=== PATIENT | female | born 1990 | race Caucasian/White ===

== ENCOUNTER 2017-04-13 10:04 | Emergency (ER) | payer BC, MEDICAID ==
[2017-04-13 10:16] VITALS: BP 117/70
--- NOTE | 2017-04-13 10:56 | UC ---
Throat Pain/Nasal Rizwan HPI - HPI Summary HPI Summary: LAST NIGHT DEVELOPED SORE THROAT, PATIENT IS 20 WKS PREGNENT. CONCERN FOR STREP. NO FEVER. NO RASH. NO ABDOMINAL PAIN - History of Current Complaint Chief Complaint: UCRespiratory Stated Complaint: SORE THROAT Time Seen by Provider: 04/13/17 10:26 Hx Obtained From: Patient Hx Last Menstrual Period: currently Onset/Duration: Gradual Onset, Lasting Days, Still Present Severity: Mild Cough: None Associated Signs & Symptoms: Positive: Hoarseness - Epiglottits Risk Factors Epiglottis Risk Factors: Negative - Allergies/Home Medications Allergies/Adverse Reactions: Allergies Allergy/AdvReac Type Severity Reaction Status Date / Time Amoxicillin Allergy GI Upset Verified 04/13/17 10:16 Home Medications: Home Medications Hydroxyprogesterone Caproate [[place]] 250 mg IM 04/13/17 [History] PMH/Surg Hx/FS Hx/Imm Hx Previously Healthy: Yes - Surgical History Surgical History: None - Family History Known Family History: Negative: Blood Disorder - Social History Occupation: Employed Full-time Lives: With Family Alcohol Use: None Substance Use Type: None Smoking Status (MU): Never Smoked Tobacco Type: Smokeless Tobacco Amount Used/How Often: 1 can/day Have You Smoked in the Last Year: No - Immunization History Most Recent Influenza Vaccination: fall 2014 Most Recent Tetanus Shot: 07/25/15 Most Recent Pneumonia Vaccination: none Review of Systems Constitutional: Negative Skin: Negative Eyes: Negative ENT: Sore Throat Respiratory: Negative Cardiovascular: Negative Gastrointestinal: Negative Genitourinary: Negative Motor: Negative Neurovascular: Negative Musculoskeletal: Negative Neurological: Negative Psychological: Negative Is Patient Immunocompromised?: No All Other Systems Reviewed And Are Negative: Yes Physical Exam Triage Information Reviewed: Yes Appearance: Well-Appearing, No Pain Distress, Well-Nourished Vital Signs: Initial Vital Signs Temp 98.0 F 04/13/17 10:11 Pulse 97 04/13/17 10:11 Resp 18 04/13/17 10:11 BP 117/70 04/13/17 10:11 Pulse Ox 99 04/13/17 10:11 Vital Signs Reviewed: Yes Eye Exam: Normal ENT: Positive: Pharyngeal erythema Dental Exam: Normal Neck exam: Normal Neck: Positive: Supple, Nontender, No Lymphadenopathy Respiratory Exam: Normal Respiratory: Positive: Chest non-tender, Lungs clear, Normal breath sounds, No respiratory distress, No accessory muscle use Cardiovascular Exam: Normal Cardiovascular: Positive: RRR, No Murmur, Pulses Normal, Brisk Capillary Refill Abdominal Exam: Normal Abdomen Description: Positive: Nontender, No Organomegaly, Soft Musculoskeletal Exam: Normal Musculoskeletal: Positive: Strength Intact, ROM Intact Neurological Exam: Normal Psychological Exam: Normal Skin Exam: Normal Throat Pain/Nasal Course/Dx - Differential Dx/Diagnosis Differential Diagnosis/HQI/PQRI: Pharyngitis, Sinusitis, Tonsillitis Provider Diagnoses: PHARYNGITIS; 20 WEEKS Discharge - Discharge Plan Condition: Stable Disposition: HOME Patient Education Materials: Pharyngitis (ED) Referrals: Cara Marshall MD [Primary Care Provider] -
== END 2017-04-13 10:55 | disposition home or self-care (01) ==
LOC: UCEAST 10:04
DX: O26.892 Other specified pregnancy related conditions, second trimester (principal); Z88.1 Allergy status to other antibiotic agents; J02.9 Acute pharyngitis, unspecified; Z3A.20 20 weeks gestation of pregnancy
CPT/HCPCS: 87651; 99211; G0463

== ENCOUNTER 2017-07-08 09:46 | Inpatient (IN) | payer BC, MEDICAID ==
[2017-07-08] MEDS ORDERED: Ibuprofen TAB* 600 MG ONE (10:27)
[2017-07-08] MEDS ORDERED: Acetaminophen TAB* 325 MG PO PRN (10:32)
[2017-07-08] MEDS ORDERED: Dibucaine 1% 28.35 GM TUBE PR PRN (10:32)
[2017-07-08] MEDS ORDERED: Witch Hazel PAD* JAR TOPICAL PRN (10:32)
[2017-07-08] MEDS ORDERED: Glycerin ADULT SUPP PR PRN (10:32)
[2017-07-08] MEDS ORDERED: Simethicone TAB* 80 MG TAB.CHEW PO SCH (12:30)
[2017-07-08] MEDS: Ibuprofen TAB* 600 MG PO PRN ×2 (16:22→21:43)
[2017-07-08] MEDS: Docusate CAP* 100 MG PO SCH (21:44)
[2017-07-09] MEDS: Ibuprofen TAB* 600 MG PO PRN ×3 (04:02→21:33)
[2017-07-09 07:25] LABS: Hematocrit 39 % (35-47); Hemoglobin 13.5 g/dl (12.0-16.0); Mean Corpuscular HGB Conc 34 g/dl (31-36); Mean Corpuscular Hemoglobin 30 pg (27-31); Mean Corpuscular Volume 88 fL (80-97); Mean Platelet Volume 8 um3 (7.4-10.4); Red Blood Count 4.49 10^6/ul (4.0-5.4); Red Cell Distribution Width 14 % (10.5-15)
[2017-07-09 07:26] LABS: Add Diff/Slide Review? Slide Review Added; Comments Flag Yes
[2017-07-09] MEDS: Docusate CAP* 100 MG PO SCH ×4 (08:42→21:32)
[2017-07-09] MEDS ORDERED: Ferrous Gluconate TAB* 324 MG TAB PO SCH (09:00)
[2017-07-09] MEDS ORDERED: Measles, Mumps,Rubella VACC* 0.5 ML/VIAL SUBCUT ONE (09:00)
[2017-07-10] MEDS: Ibuprofen TAB* 600 MG PO PRN ×2 (07:11→18:07)
[2017-07-10] MEDS: Docusate CAP* 100 MG PO SCH ×2 (09:49→18:06)
[2017-07-10 12:37] VITALS: BP 131/81
== END 2017-07-10 18:50 | disposition home or self-care (01) | DRG 560 ==
LOC: MCHOBOUT 09:46 → MCHOB 09:54
PROVIDERS: ADMIT Obstetrics & Gynecology; ATTEND Obstetrics & Gynecology
PROC: 10E0XZZ Delivery of Products of Conception, External Approach (ICD-10-PCS; principal; 2017-07-08)
PROC: 10907ZC Drainage of Amniotic Fluid, Therapeutic from Products of Conception, Via Natural or Artificial Opening (ICD-10-PCS; 2017-07-08)
DX: O60.14X0 Preterm labor third trimester with preterm delivery third trimester, not applicable or unspecified (principal); O69.3XX0 Labor and delivery complicated by short cord, not applicable or unspecified; O70.0 First degree perineal laceration during delivery; Z3A.32 32 weeks gestation of pregnancy; Z37.0 Single live birth
CPT/HCPCS: 36415; 85025; 87070; A9270-GY

== ENCOUNTER 2018-10-11 12:32 | Emergency (ER) | payer BC, MEDICAID ==
--- OUTSIDE RECORDS SUMMARY | 2018-10-11 12:39 | XMS REPORT | Continuity of Care Document ---
:1990 External Reference #:[id number] Author Name Cristina Robles MD Address [address] [place] [address] Care Team Providers Name Role Phone Cara Marshall MD Primary Care Physician Unavailable Payers Date Identification Numbers Payment Provider Subscriber Policy Number: [id number] [employer]/[facility] PayID: [id number] [address] [address] [place] [address] Policy Number: [id number] Medicaid [place] Trisha Ward PayID: [id number] [address] [place] [address] Advance Directives Description No Information Available Problems Date Description Provider Status Onset: 06/18/2017 H/O: premature delivery Jerrica Garnett CNM Active Family History Date Family Member(s) Observation Comments : (2000) Father due to Suicide : (2007) Mother due to Stomach Cancer Number of Children 2 First Son A&W Second Son A&W Number of Siblings Siblings: 3 First Brother A&W First Sister Drug Addiction Second Sister A&W Paternal Grandfather due to Unknown Causes () Paternal Grandmother Heart Disease Maternal Grandfather Diabetes Maternal Grandmother Heart Disease Maternal Grandmother due to Congestive Heart () Failure Maternal Grandmother Hypertension Social History Type Date Description Comments Sex Unknown Education Highest level of education completed is 12th grade Marital Status Patient is engaged Living Situation 2 daughters(adopted, sisters children) and sons Diet Diet is healthy and well balanced Pets Household pets include a dog 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 [employer] Environmental Hazards Not exposed to any environmental hazards Cigarette Use Never smoked cigarettes Alcohol Denies alcohol use Tobacco Use Start: Unknown Patient has never smoked Drug Use Denies drug use Smoking Status Reviewed: 10/01/18 Patient has never smoked Daily Caffeine occ soda Exercise Type/Frequency Exercises regularly Current Seat Belt/Car Seat Always uses a seat belt Currently Active The patient is currently sexually active Contraceptive Methods Current methods of control used include condoms Allergies, Adverse Reactions, Alerts Description No Known Drug Allergies Medications Medication Date Status Form Strength Qnty SIG Indications Ordering Provider Tiffanie (52 10/01/ Active IUD 19.5mcg/D Placed Baclawski MG) 2018 ay 10/01/2018 , MD Cristina No Active 10/01/ Hx Unknown Medications 2018 - 2018 Marlissa 09/25/ Hx Tablets 0.15-30mg 84tab take 1 tablet Erianna 2017 - -mcg s by mouth once Juarez, 09/27/ daily CN 2018 No Active 09/04/ Hx Unknown Medications 2017 - 2017 Dha 12/27/ Hx Capsules 200mg 90cap 1 by mouth Flakita 2017 - s every day, ok Sheryl, 09/04/ to use LM 2017 200-400mg dha, ok to use any generic No Active 12/24/ Hx Unknown Medications 2016 - 2016 No Active 07/02/ Hx Unknown Medications 2015 - 2015 Levora 0.15/30 07/02/ Hx Tablets 0.15-30mg 84tab take 1 tab by Apurva () 2015 - -mcg s mouth every MD Pat day 2016 Orsythia 10/23/ Hx Tablets 0.1-20mg- 84tab take one tab Apurva 2015 - mcg s PO daily MD Pat 2015 Azithromycin 04/19/ Hx Tablets 500mg 2tabs take 2 tabs Jerrica 2014 - for a total of Garnett, 04/26/ 1000mg (1g) by CNTayla 2014 mouth x1 PNV-Dha 04/17/ Hx Capsules 27-0.6-0. 30cap 1 by mouth Maureen 2014 - 4-300mg s every day Óscar, 06/27/ CNM 2015 Provera 03/20/ Hx Tablets 10mg 10tab 1 po qd x 10 Zahra 2009 - s Elmer, 03/25/ ANP-C 2009 Lo/Ovral-28 03/20/ Hx Tablets 0.3-30mg- 3mont 1 po qd Zahra 2009 - mcg hs Jump, 04/17/ ANP-C 2014 [place] / Hx Oil 250mg/ml 1 milliliters Unknown 0000 - intramuscular 09/04/ week 2017 Medications Administered in Office Medication Date Status Form Strength Qnty SIG Indications Ordering Provider PT SCRN Tbco Administered Injection Margaret, Id as Non User 019 MD Cristina Immunizations CPT Code Status Date Vaccine Lot # [id number] Given 05/09/2017 Influenza Vaccine Quadrivalent Preser/Antibiotic [id number] Free [place] Use [id number] Given 07/25/2015 Tetnus, Diptheria Toxoids And Acellular Pertussis, [id number] PT > 7Yrs Old Vital Signs Date Vital Result Comment 10/01/2018 2:53pm BP Systolic 124 mmHg BP Diastolic 62 mmHg Height 58 inches 4'10" Weight 172.00 lb BMI (Body Mass Index) 35.9 kg/m2 Last Menstrual Period [id number] 2 Parity 2 09/16/2018 11:38am BP Systolic 124 mmHg BP Diastolic 74 mmHg Height 58 inches 4'10" Weight 175.00 lb BMI (Body Mass Index) 36.6 kg/m2 Last Menstrual Period [id number] 2 Parity 2 09/04/2017 8:35am BP Systolic 116 mmHg BP Diastolic 84 mmHg Height 58 inches 4'10" Weight 183.00 lb BMI (Body Mass Index) 38.2 kg/m2 Last Menstrual Period 5988956 2 Parity 2 01/13/2017 1:25pm BP Systolic 114 mmHg BP Diastolic 72 mmHg Height 58 inches 4'10" Weight 175.00 lb BMI (Body Mass Index) 36.6 kg/m2 Last Menstrual Period [id number] 2 Parity 1 12/24/2016 2:28pm BP Systolic 122 mmHg BP Diastolic 72 mmHg Height 58 inches 4'10" Weight 175.00 lb BMI (Body Mass Index) 36.6 kg/m2 Last Menstrual Period 1011828 2 Parity 1 07/02/2016 2:30pm BP Systolic 130 mmHg BP Diastolic 84 mmHg Height 58 inches 4'10" Weight 181.00 lb BMI (Body Mass Index) 37.8 kg/m2 1 Parity 1 10/24/2015 1:43pm BP Systolic 140 mmHg BP Diastolic 88 mmHg Height 58 inches 4'10" Weight 176.00 lb BMI (Body Mass Index) 36.8 kg/m2 1 Parity 1 04/17/2015 2:06pm BP Systolic 118 mmHg BP Diastolic 64 mmHg Height 58 inches 4'10" Weight 159.00 lb BMI (Body Mass Index) 33.2 kg/m2 1 Parity 0 04/29/2014 1:48pm BP Systolic 124 mmHg BP Diastolic 84 mmHg Height 58 inches 4'10" Weight 155.00 lb BMI (Body Mass Index) 32.4 kg/m2 Last Menstrual Period [id number] 0 Parity 0 04/06/2014 2:25pm BP Systolic 132 mmHg BP Diastolic 78 mmHg Height 58 inches 4'10" Weight 162.00 lb BMI (Body Mass Index) 33.9 kg/m2 Last Menstrual Period [id number] 0 12/16/2013 2:16pm BP Systolic 132 mmHg BP Diastolic 78 mmHg Height 58 inches 4'10" Weight 161.00 lb BMI (Body Mass Index) 33.6 kg/m2 Last Menstrual Period 2136020 0 Parity 0 03/20/2010 3:22pm BP Systolic 120 mmHg BP Diastolic 76 mmHg Height 58.75 inches 4'10.75" Weight 172.00 lb BMI (Body Mass Index) 35.0 kg/m2 Last Menstrual Period [id number] 0 02/27/2010 10:03am BP Systolic 120 mmHg BP Diastolic 76 mmHg Height 58.75 inches 4'10.75" Weight 173.00 lb BMI (Body Mass Index) 35.2 kg/m2 Last Menstrual Period [id number] 0 Results Test Date Facility Test Result H/L Range Note Laboratory test 09/16/2018 [facility] Cytology SEE RESULT 1 [place] [address] BELOW [phone] Laboratory test 06/11/2017 [facility] Glucose 1 HR 123 mg/dL N 70-160 2 [place] [address] Post Prandial [phone] CBC With No Diff 06/11/2017 [facility] White Blood 11.8 10^3/uL High 3.5-10.8 [place] [address] Count [phone] Red Blood Count 3.99 10^6/uL Low 4.0-5.4 Hemoglobin 12.5 g/dL N 12.0-16.0 Hematocrit 38 % N 35-47 Mean Corpuscular Volume 95 fL N 80-97 Mean Corpuscular Hemoglobin 31 pg N 27-31 Mean Corpuscular HGB Conc 33 g/dL N 31-36 Red Cell Distribution Width 15 % N 10.5-15 Platelet Count 242 10^3/uL N 150-450 Mean Platelet Volume 8 um3 N 7.4-10.4 GC/Chlamydia Dna 04/30/2017 [facility] Chlamydia [place] [address] trachomatis Rna [phone] Neisseria gonorrhoeae (GC) Rna Negative N Negative Serum Integrated Screen Part 2 MT 03/14/2017 [facility] Interpretation SEE BELOW 3 Risk For Ontd <1:5000 Age Risk Down Syndrome 1:820 KRISTYN Down Syndrome Risk 1:1000 <1:270 KRISTYN Trisomy 18 Risk <1:5000 <1:100 Calculated Gestational Age 16.0 Afp,Serum 20.2 ng/mL Afp Mom 0.69 4 HCG,Serum 45.7 IU/mL HCG Mom 1.46 Estriol,Free 0.59 ng/mL Estriol Mom 0.81 Inhibin A,Dimeric 188 pg/mL Inhibin A Mom 1.19 Anila-A 468.2 ng/mL 5 Anila-A Mom 0.93 6 Referring Physician Name STEVENS Referring Physician Phone [phone] Referring Physician Npi [id number] Specimen # From Part 1 [id number] Date Of Collection Date Maternal Weight 175 lbs Est'd Date Of Delivery 08/29/2017 Mother's Ethnic Origin Insulin Depend Diabetic NO Repeat Specimen NO Number Of Fetuses 1 HX Of Neural Tube Defects NO 7 PNL No 02/10/2017 [facility] Rubella Equivocal IU/mL N Immune 8 [place] [address] Screen [phone] Hemoglobin A1c 4.8 % N Less than 6.0 9 Hepatitis B Surface Ag Nonreactive N Nonreactive 10 Syphillis Igg W/Reflex RPR Nonreactive N Nonreactive 11 CBC With No 02/10/2017 [facility] White Blood 11.8 10^3/uL High 3.5-10.8 [place] [address] Count [phone] Red Blood Count 4.80 10^6/uL N 4.0-5.4 Hemoglobin 14.5 g/dL N 12.0-16.0 Hematocrit 44 % N 35-47 Mean Corpuscular Volume 92 fL N 80-97 Mean Corpuscular Hemoglobin 30 pg N 27-31 Mean Corpuscular HGB Conc 33 g/dL N 31-36 Red Cell Distribution Width 14 % N 10.5-15 Platelet Count 253 10^3/uL N 150-450 Mean Platelet Volume 9 um3 N 7.4-10.4 Type And Screen 02/10/2017 [facility] Patient [place] [address] [phone] Antibody Screen NEGATIVE N HIV 1/2 AB 02/10/2017 [facility] HIV 1 2 Nonreactive N Nonreactive 12 [place] [address] Antibody [phone] Lead 02/10/2017 [facility] Lead <1.0 g/dL N 0.0-4.9 13 [place] [address] [phone] Serum 02/10/2017 [facility] Comment SEE BELOW 14 Integrated SCRN Part 1 MT Referring Physician Name WILSON 15 Referring Physician 16 Referring Physician Npi [id number] 17 Date Of 1990 18 Collection Date 02/10/2017 19 Maternal Weight 175 lbs 20 Est'd Date Of Delivery 08/29/2017 21 GRACE Determined By US 22 Mother's Ethnic Origin 23 Number Of Fetuses 1 24 Insulin Depend Diabetic NO 25 Repeat Specimen NO 26 HX Of Neural Tube Defects NO 27 Prev Down Synd NO 28 Donor Egg NO 29 Donor Age:Egg Retrieval NOT GIVEN 30 Urine Culture And 01/13/2017 [facility] Urine Culture SEE RESULT 31 [place] [address] BELOW [phone] Laboratory test 12/24/2016 [facility] HCG 3985.00 N 32 [place] [address] mIU/mL [phone] Laboratory test 12/22/2016 [facility] HCG 1734.00 N 33 [place] [address] mIU/mL [phone] Laboratory test 12/20/2016 [facility] HCG 583.59 N 34 [place] [address] mIU/mL [phone] Laboratory test 07/02/2016 [facility] Cytology SEE RESULT 35 [place] [address] BELOW [phone] Human Papilloma Virus Rna Negative N Negative 36 Laboratory test 09/07/2015 [facility] Surgical SEE RESULT 37 [place] [address] Pathology BELOW [phone] Laboratory test 09/06/2015 [facility] Rupture of Positive N 38 [place] [address] Membranes [phone] Laboratory test 07/25/2015 [facility] Glucose 1 HR 125 mg/dL N 70-16 [place] [address] Post Prandial 0 [phone] CBC With No 07/25/2015 [facility] White Blood 11.7 10^3/uL High 3.5-1 [place] [address] Count 0.8 [phone] Red Blood Count 4.29 10^6/uL N 4.0-5.4 Hemoglobin 13.9 g/dL N 12.0-16.0 Hematocrit 41 % N 35-47 Mean Corpuscular Volume 95 fL N 80-97 Mean Corpuscular Hemoglobin 32 pg High 27-31 Mean Corpuscular HGB Conc 34 g/dL N 31-36 Red Cell Distribution Width 13 % N 10.5-15 Platelet Count 231 10^3/uL N 150-450 Mean Platelet Volume 7 um3 Low 7.4-10.4 GC/Chlamydia Dna 05/29/2015 [facility] Chlamydia [place] [address] trachomatis Rna [phone] Neisseria gonorrhoeae (GC) Rna Negative N Negative 39 Quad Screen 05/15/2015 [facility] Interpretation SEE NOTE 40 Risk For NTD (Osb) LESS THAN 1:5000 41 Risk For Down Based On Age 1:936 Risk For Down Based On SCR LESS THAN 1:5000 <1:270 42 Trisomy 18 Risk Based On SCR LESS THAN 1:5000 <1:100 43 Afp,Serum 45.6 NG/ML Adjusted Mom 1.05 44 HCG,Serum 31.355 IU/mL Mom 1.40 Estriol,Free 1.06 NG/ML Mom 0.74 Inhibin A 98 pg/mL Mom 0.60 Comment SEE NOTE 45 Date Of 1990 GRACE 10/13/2015 GRACE Determined By ULTRASOUND Gestational Age 18.4 WEEKS Weight 159 LBS Race =W Insulin Dependent Diabetic NO Repeat Sample NO Number Of Fetuses 1 History Of NTD NO Date Of Draw 05/15/2015 [facility] SEE NOTE 46 Urine Culture 04/17/2015 [facility] Urine SEE RESULT 47 [place] [address] Culture BELOW Sensitivities [phone] HIV 1/2 AB 04/17/2015 [facility] HIV 1 2 Nonreactive N Nonreactive 48 [place] [address] Antibody [phone] Type And Screen 04/17/2015 [facility] [place] [address] Blood Type [phone] Antibody Screen NEGATIVE N CBC With No 04/17/2015 [facility] White Blood 13.4 10^3/uL High 4.8-10[place]8 [place] [address] Count [phone] Red Blood Count 4.55 10^6/uL N 4.0-5.4 Hemoglobin 14.5 g/dL N 12.0-16.0 Hematocrit 45 % N 35-47 Mean Corpuscular Volume 99 fL High 80-97 Mean Corpuscular Hemoglobin 32 pg High 27-31 Mean Corpuscular HGB Conc 32 g/dL N 31-36 Red Cell Distribution Width 14 % N 10.5-15 Platelet Count 286 10^3/uL N 150-450 Mean Platelet Volume 9 um3 N 7.4-10.4 RPR 04/17/2015 [facility] Pediatric/[place] [address] [phone] RPR Nonreactive N Nonreactive RPR Titer TNP N Syphilis IgG TNP N Nonreactive PNL No 04/17/2015 [facility] Rubella Screen Immune IU/ [place] [address] [phone] Hemoglobin A1c 4.6 % N Less than 6.0 49 Hepatitis B Surface Ag Nonreactive N Nonreactive 50 [employer] Cystic Fibrosis Expanded SCRN 04/17/2015 [facility] Ethnicity WHITE CF Result SEE BELOW 51 Interpretation SEE BELOW 52 Additional Information SEE BELOW 53 Mutations Analyzed SEE BELOW 54 Parvovirus B19 AB 04/17/2015 [facility] Parvovirus B19 AB (Igm) 0.1 index < 0.9 55 (Igg,M) Parvovirus B19 AB (Igg) 2.1 index High <0.9 Laboratory 04/17/2015 [facility] Human Negative N Negative 56 test finding [place] [address] Papilloma [phone] Virus Rna GC/Chlamydia 04/17/2015 [facility] Chlamydia Positive Abnormal Negative Dna Probe [place] Jan[place] trachomatis [phone] Rna Neisseria gonorrhoeae (GC) Rna Negative N Negative 57 Laboratory test 04/17/2015 [facility] Cytology SEE RESULT 58 finding [place] [address] BELOW [phone] Laboratory test 04/06/2014 [facility] Surgical RUN DATE: [address] [place] [address] Pathology 04/11/ <SEE [phone] NOTE> Laboratory test 12/16/2013 [facility] Surgical RUN DATE: 60 finding [place] Pathology 12/22/ <SEE [phone] NOTE> 1 SEE RESULT BELOW Name: LAVELL ESCOBAR : [address]: Cristina Robles MD Acct: [id number] Unit: [id number] AGE: 28 Location: [facility] Re09/16/18 SEX: F Status: REG REF SPEC: [id number] EUFEMIA: 09/16/18-[address] [facility] [address]: Cristina Robles MD REQ: [id number] RECD: 09/16/18-6306 STATUS: MARIA GUADALUPE STEWART DR: Cara Marshall MD _ ORDERED: TP IMAGE ANALYS, POLE FRAMER MACHINE PHYS INTERP, HPV/Thin Prep COMMENTS: [id number] EPITHELIAL CELL ABNORMALITIES Low grade squamous intraepithelial lesion (LSIL) Date Time Test Result Flag (u) Normal Range 09/16/18 1308 @ HPV RNA POSITIVE An Negative @ @ The high-risk HPV types detected by the assay include: 16, @ 18, 31, 33, 35, 39, 45, 51, 52, 56, 58, 59, 66, and 68. A. Ectocervical/Endocervical Specimen Adequacy: Satisfactory of evaluation Transformation zone component identified Patient Information: HPV: High risk HPV RNA testing regardless of pap results. Actual Specimen Date: 09/16/18 Last Menstrual Date: 08/24/18 Date of Last Specimen: 07/02/16 Signed by and Reported on: Trenton Ramírez MD 9408 This Pap test was evaluated with the assistance of the ThinPrep Test Imaging System. Due to cytologic findings at the detective supervisor microscope, comprehensive manual rescreening by a Flight Director may be required. The Pap Smear is a screening test designed to aid in the detection of premalignant and malignant conditions of the uterine cervix. It is not a diagnostic procedure and should not be used as the sole means of detecting cervical cancer. Both false- positive and false- negative reports do occur. Depending on your risk status, a Pap smear should be obtained and evaluated every 1-3 years. END OF REPORT DEPARTMENT OF PATHOLOGY, [address] [place] [address] Trenton Ramírez M.D. Director [facility] # [id number] 2 [id number] 3 SCREEN NEGATIVE FOR OPEN NTD, DOWN SYNDROME AND TRISOMY 18. 4 Reference Range: <2.50 IDD <1.90 TWINS <4.00 TWINS IDD <3.50 TRIPLETS <4.50 5 This test was performed using a kit that has not been cleared or approved by the FDA. The analytical performance characteristics of this test have been determined by [employer] [facility]. This test should not be used for diagnosis without confirmation by other medically established means. 6 The Serum Integrated Screen combines ANILA-A in the first trimester with AFP, unconjugated estriol, intact hCG and Inhibin A in the second trimester. This provides a useful screening test for detection of open neural tube defects, Down syndrome and Trisomy 18. It should be noted that normal results can never guarantee the of a normal baby and that 2 to 3 percent of newborns have some type of physical or mental defect, many of which are undetectable through any known diagnostic technique. Interpretation reviewed by: Juliet Rasheed, Ph.D., [facility]. This is a screening test, not a diagnostic test. This risk assessment is based on demographic data provided by the ordering physician. Please notify the laboratory promptly if any data are incorrect. If you have questions concerning this report: For clinical consultation, call ; For technical questions, call ext [phone]; For recalculations, fax to [phone]. 7 For additional information, please refer to http://education.[email or web address]/faq/FAQ93 (This link is being provided for informational/educational purposes only.) 8 [id number] 9 Therapeutic target for the treatment of diabetes Mellitus patients is <7% HBA1C, and in selective patients <6.0%.Please refer to [place] [employer] Diabetic care guidelines for further information. 10 [id number] 11 Warning: A positive result is not useful for establishing a diagnosis of syphilis. In most situations, such a result may reflect a prior treated infection; a negative result can exclude a diagnosis of syphilis except for incubating or early primary disease. 12 It is recognized that currently available assays for the detection of antibodies to HIV-1 and/or HIV-2 may not detect all infected individuals. HIV antibodies may be undetectable in some stages of the infection and in some clinical conditions. The performance of this assay has not been established for populations of infants or children. Assayed by Chemiluminescence Microparticle Immunoassay on the Siemens Advia Centaur CP. Values obtained with different methods or kits cannot be used interchangeably.The diagnostic specificity of the ADVIA Centaur 1/O/2 Enhanced assay in the low risk population was 99.90% (6052/6058) with a 95% confidence interval of 99.78 to 99.96%. 13 ADDITIONAL INFORMATION Testing performed by Inductively Coupled Plasma-Mass Spectrometry (ICP-MS). This test was developed and its performance characteristics determined by [facility] in a manner consistent with CLIA requirements. This test has not been cleared or approved by the U.S. Food and Drug Administration. 14 Thank you for submitting this patients Part 1 specimen. Please submit her Part 2 specimen between 03/07/2017-05/01/2017 (15.0 and 22.9 weeks gestation) with 03/07/2017-03/20/2017 (15.0 and 16.9 weeks gestation) being optimal. When submitting Part 2, please include the following Specimen # from Part 1: [id number] If you have questions concerning this report: For clinical consultation, call ; For technical questions, call ext [phone]; For recalculations, fax to . This test was developed and its analytical performance characteristics have been determined by [employer] [facility]. It has not been cleared or approved by FDA. This assay has been validated pursuant to the CLIA regulations and is used for clinical purposes. For additional information, please refer to http://PlaceFull/faq/FAQ91 (This link is being provided for informational/educational purposes only.) 15 For additional information, please refer to http://PlaceFull/faq/FAQ91 (This link is being provided for informational/educational purposes only.) 16 For additional information, please refer to http://PlaceFull/faq/[email or web address] (This link is being provided for informational/educational purposes only.) 17 For additional information, please refer to http://PlaceFull/faq/FAQ91 (This link is being provided for informational/educational purposes only.) 18 For additional information, please refer to http://PlaceFull/faq/[email or web address] (This link is being provided for informational/educational purposes only.) 19 For additional information, please refer to http://PlaceFull/faq/[email or web address] (This link is being provided for informational/educational purposes only.) 20 For additional information, please refer to http://PlaceFull/faq/[email or web address] (This link is being provided for informational/educational purposes only.) 21 For additional information, please refer to http://PlaceFull/faq/[email or web address] (This link is being provided for informational/educational purposes only.) 22 For additional information, please refer to http://PlaceFull/faq/[email or web address] (This link is being provided for informational/educational purposes only.) 23 For additional information, please refer to http://PlaceFull/faq/FAQ91 (This link is being provided for informational/educational purposes only.) 24 For additional information, please refer to http://PlaceFull/faq/FAQ91 (This link is being provided for informational/educational purposes only.) 25 For additional information, please refer to http://PlaceFull/faq/FAQ91 (This link is being provided for informational/educational purposes only.) 26 For additional information, please refer to [employer]://PlaceFull/faq/FAQ91 (This link is being provided for informational/educational purposes only.) 27 For additional information, please refer to http://PlaceFull/faidiag/[email or web address] (This link is being provided for informational/educational purposes only.) 28 For additional information, please refer to http://PlaceFull/[email or web address] (This link is being provided for informational/educational purposes only.) 29 For additional information, please refer to [email or web address]/[email or web address] (This link is being provided for informational/educational purposes only.) 30 For additional information, please refer to [email or web address] (This link is being provided for informational/educational purposes only.) 31 SEE RESULT BELOW Name: LAVELL ESCOBAR : [address]: Cristina Maldonado [facility] Acct: [id number] Unit: [id number] AGE: 26 Location: [facility] Re01/13/17 SEX: F Status: REG REF SPEC: [id number] EUFEMIA: 01/13/17-[address] [facility] [address]: Cristina Maldonado [facility] REQ: [id number] RECD: 01/13/17 STATUS: COMP _ SOURCE: URINE SPDESC: ORDERED: Urine Culture COMMENTS: [id number] Urine Source: Random Procedure Result Reported Site Urine Culture Final 01/15/17- 0835 ML No growth of clinically significant organisms * ML - MAIN LAB ([facility]) . END OF REPORT * ML=Testing performed at Main Lab DEPARTMENT OF PATHOLOGY, [address] [place] [address] Trenton Ramírez M.D. Director [facility] # [id number] 32 <5.0 Negative 5.0 - 25.0 Indeterminate (Repeat testing recommended after 72 hours) >25.0 Positive Perimenopausal women can display HCG levels of up to 20 mIU/mL 33 <5.0 Negative 5.0 - 25.0 Indeterminate (Repeat testing recommended after 72 hours) >25.0 Positive Perimenopausal women can display HCG levels of up to 20 mIU/mL 34 <5.0 Negative 5.0 - 25.0 Indeterminate (Repeat testing recommended after 72 hours) >25.0 Positive Perimenopausal women can display HCG levels of up to 20 mIU/mL 35 SEE RESULT BELOW Name: LAVELL ESCOBAR : [address]: Apurva Stewart MD Acct: [id number] Unit: [id number] AGE: 26 Location: [facility] Re07/02/16 SEX: F Status: REG REF SPEC: [id number] EUFEMIA: 07/02/16-[address] [facility] [address]: Apurva Stewart MD REQ: [id number] RECD: 07/03/164715 STATUS: SOUT _ ORDERED: IMAGE ANALYSIS, HPV/Thin Prep COMMENTS: [id number] FINAL DIAGNOSIS Negative for Intraepithelial lesion or Malignancy A. Ectocervical/Endocervical Specimen Adequacy: Satisfactory of evaluation Transformation zone component identified Patient Information: HPV: High risk HPV RNA testing regardless of pap results. Actual Specimen Date: 07/02/16 LMP If Unknown: Last Menstrual Period Not Given. Date of Last Specimen: 04/17/15 Date Time Test Result Flag (u) Normal Range 07/02/16 1517 HPV RNA Negative Negative The high-risk HPV types detected by the assay include: 16, 18, 31, 33, 35, 39, 45, 51, 52, 56, 58, 59, 66, and 68. Signed (signature on file) [place] ([facility]) 07/04 1186 This Pap test was evaluated with the assistance of the AmVacPrep Test Imaging System. Due to cytologic findings at the detective supervisor microscope, comprehensive manual rescreening by a Flight Director may be required. The Pap Smear is a screening test designed to aid in the detection of premalignant and malignant conditions of the uterine cervix. It is not a diagnostic procedure and should not be used as the sole means of detecting cervical cancer. Both false- positive and false- negative reports do occur. Depending on your risk status, a Pap smear should be obtained and evaluated every 1-3 years. END OF REPORT * ML=Testing performed at Main Lab DEPARTMENT OF PATHOLOGY, [address] [place] [address] Trenton Ramírez M.D. Director [facility] # [id number] 36 The high-risk HPV types detected by the assay include: 16, 18, 31, 33, 35, 39, 45, 51, 52, 56, 58, 59, 66, and 68. 37 SEE RESULT BELOW Name: LAVELL ESCOBAR : [address]: Corrine Stevens MD Acct: [id number] Unit: [id number] AGE: 25 [place] [facility] [facility] Re09/06/15 SEX: F Status: ADM IN SPEC: [id number] EUFEMIA: 09/07/15- SUBM DR: Corrine Stevens MD REQ: [id number] RECD: 09/07/15-3808 STATUS: SOUT _ ORDERED: LEVEL V FINAL DIAGNOSIS Third trimester placenta (3 of 71 g), delivery: -- Three-vessel umbilical cord with no evidence of acute funisitis. -- membranes with no evidence of acute chorioamnionitis. -- Placental disc with mature chorionic villi. PRE-OPERATIVE DIAGNOSIS Premature rupture of membranes at 34+5 weeks GROSS DESCRIPTION The specimen is received in formalin with no source identified, and consists of a 371 g placenta with attached cord and membranes. The placental disc measures 14.5 x 12.0 x 2.0 cm and has an eccentric inserted 30.0 cm by up to 1.2 cm three-vessel, yellow-white umbilical cord which attaches 5.7 cm from the placental margin. The surface is glistening blue to salazar. The maternal surface is lobulated and intact with normal cotyledons and moderate adherent red-brown blood clot. The cut surface is spongy red-purple. The membranes are thin, translucent, and pliable. Outboard [employer] sections are submitted in two cassettes. Signed (signature on file) Meka Landaverde MD 07/12 1102 END OF REPORT * ML=Testing performed at Main Lab DEPARTMENT OF PATHOLOGY, [address] [place] [address] Trenton Ramírez M.D. Director [facility] # [id number] 38 A POSITIVE result indicates probable membrane rupture. 39 Female urine specimens have been self-validated by [facility] and have been granted conditional assay approval by [facility]. 40 SCREEN NEGATIVE FOR OPEN NTD, DS AND TRISOMY 18. 41 LESS THAN 1:5000 42 LESS THAN 1:5000 43 LESS THAN 1:5000 44 ADJUSTED AFP MOM INTERPRETIVE CUTOFFS: <2.50 ADJUSTED MOM <1.90 ADJUSTED MOM FOR INSULIN-DEPENDENT DIABETES <4.00 ADJUSTED MOM FOR TWINS <3.50 ADJUSTED MOM FOR TWINS INSULIN-DEPENDENT DIABETES <4.50 ADJUSTED MOM FOR TRIPLETS <4.00 ADJUSTED MOM FOR TRIPLETS INSULIN-DEPENDENT DIABETES 45 PERFORMANCE OF MATERNAL SERUM AFP, HCG, ESTRIOL, AND DIMERIC INHIBIN A PROVIDES A USEFUL SCREENING TEST FOR DETECTION OF OPEN NEURAL TUBE DEFECTS AND SOME CHROMOSOMAL ABNORMALITIES. IT SHOULD BE NOTED THAT NORMAL RESULTS CAN NEVER GUARANTEE THE OF A NORMAL BABY AND THAT 2 TO 3 PERCENT OF [place] HAVE SOME TYPE OF PHYSICAL OR MENTAL DEFECT, MANY OF WHICH ARE UNDETECTABLE THROUGH ANY KNOWN DIAGNOSTIC TECHNIQUE. THIS IS A SCREENING TEST, NOT A DIAGNOSTIC TEST. THIS RISK ASSESSMENT REPORT IS BASED IN PART ON DEMOGRAPHIC DATA PROVIDED BY THE ORDERING PHYSICIAN. PLEASE NOTIFY THE LAB PROMPTLY IF ANY DATA IS INCORRECT. FOR ASSISTANCE WITH RECALCULATIONS, PLEASE CALL YOUR LOCAL [facility] AT . FOR ASSISTANCE WITH INTERPRETATION OF THESE RESULTS, PLEASE CALL [phone]. 46 REVIEWED BY Mike BRIGGS M.D. 47 SEE RESULT BELOW Name: JANET ESCOBARHA : [address]: Onelia Cantrell CNM Acct: [id number] Unit: [id number] AGE: 24 Location: [facility] Re04/17/15 SEX: F Status: REG REF SPEC: [id number] EUFEMIA: 04/17/15-[address]: Onelia Cantrell CNM REQ: [id number] RECD: 04/17/15 STATUS: COMP _ SOURCE: URINE SPDESC: ORDERED: Urine Culture Procedure Result Verified Site Urine Culture Final 04/19/15- 1227 ML Organism 1 NORMAL NONI [place] Count 10-25,000 (Moderate) CFU/ML * ML - MAIN LAB (PSC1) . END OF REPORT * ML=Testing performed at Main Lab DEPARTMENT OF PATHOLOGY, [address] [place] [address] Trenton Ramírez M.D. Director [facility] # [id number] 48 It is recognized that currently available assays for the detection of antibodies to HIV-1 and/or HIV-2 may not detect all infected individuals. HIV antibodies may be undetectable in some stages of the infection and in some clinical conditions. The performance of this assay has not been established for populations of infants or children. Assayed by Chemiluminescence Microparticle Immunoassay on the Siemens Advia Centaur CP. Values obtained with different methods or kits cannot be used interchangeably.The diagnostic specificity of the ADVIA Centaur 1/O/2 Enhanced assay in the low risk population was 99.90% (6002/6078) with a 95% confidence interval of 99.78 to 99.96%. 49 Therapeutic target for the treatment of diabetes Mellitus patients is <7% HBA1C, and in selective patients <6.0%.Please refer to [place] Diabetes Association Diabetic care guidelines for further information. 50 , Pediatric (<=12yrs) or Maternal?: YES 51 NEGATIVE; NONE OF THE MUTATIONS LISTED BELOW WERE DETECTED 52 This result does not rule out the presence of a mutation or a diagnosis of cystic fibrosis disease (CF). The risk for mutations that cause CF other than the ones tested depends greatly on family history, clinical presentation, and ethnicity. Detection rates and residual risk estimates are based on a subset of 78 mutations from the panel, which includes the 23 ACMG/ACOG-recommended mutations. Exact figures are currently unavailable for all 155 mutations on the [employer] Cystic Fibrosis Expanded Screen. Detection rates may be slightly higher and residual risk rates may be slightly lower than the figures in this table since the estimates are based on a subset of mutations. Racial/Ethnic Detection Carrier Carrier Group Rate, % Rate Risk Before After Testing Negative Test Result Ashkenazi Sabianism 95 08/20461 Non- 90 08/21 Faroese 88 78 Faroese 53 Laboratory results and submitted clinical information reviewed by Daniele Caldwell, Ph.D., [facility] [place], [facility]. 53 This assay detects 155 CF mutations, including the twenty-three core mutations recommended by the [place] [employer] (ACMG) and the [place] Congress of Obstetricians and Gynecologists (ACOG) for population-based CF carrier screening. While the additional mutations detected in this assay are rare in the general [place] population, the scientific and medical literature indicates that these mutations are associated with CF (Marita Mell, 2013, 45:1160-7) and may have increased prevalence in some ethnic groups (Clin Chem, 57:841-8). The status of the intron 8 polyT tract is reported only when the R117H mutation is detected. The mutations are detected by multiplex-polymerase chain reaction (PCR) amplification of specific CF gene regions, followed by nucleotide sequence analysis on a massively parallel sequencing platform. Although rare, false positive or false negative results may occur. All results should be interpreted in the context of clinical findings, relevant history, and other laboratory data. Health care providers, please contact your local [employer] genetic counselor or call [employer] ([phone]) for assistance with interpretation of these results. 54 M1V (c.1A>G), CFTRdele2,3, Q39X (c.115C>T), 296+2T>A (c.164+2T>A), E60X (c.178G>T), P67L (c.200C>T), R75X (c.223C>T), G85E (c.254G>A), 394delTT (c.262delTT), G91R (c.271G>A), 405+1G>A (c.273+1G>A), 406-1G>A (c.274-1G>A), E92K (c.274G>A), E92X (c.274G>T), Q98X (c.292C>T), 444delA (c.313delA), 457TAT>G (c.325delTATinsG), D110H (c.328G>C), R117C (c.349C>T), R117H (c.350G>A), Y122X (c.366T>A), 574delA (c.442delA), 621+1G>T (c.489+1G>T), 663delT (c.531delT), G178R (c.532G>A), 711+1G>T (c.579+1G>T), 712-1G>T (c.580-1G>T), L206W (c.617T>G), Q220X (c.658C>T), 706nyj46 (c.379jvc42), 935delA (c.803delA), 936delTA (c.805delAT), E434evi (c.933delCTT), 1078delT (c.948delT), G330X (c.988G>T), R334W (c.1000C>T), I336K (c.1007T>A), T338I (c.1013C>T), S341P (c.1021T>C), 1154insTC (c.1022insTC), 1161delC (c.1029delC), R347P (c.1040G>C), R352Q (c.1055G>A), 1213delT (c.1081delT), S364P (c.1090T>C), 1248+1G>A (c.1116+1G>A), 1259insA (c.1127insA), 1288insTA (c.1153insAT), W401X (c.1202G>A or c.1203G>A), 1341+1G>A (c.1209+1G>A), 9284bdc7 (c.1329insAGAT), A455E (c.1364C>A), 1525-1G>A (c.1393-1G>A), S466X (c.1397C>A or c.1397C>G), L467P (c.1400T>C), 1548delG (c.1418delG), G480C (c.1438G>T), S489X (c.1466C>A), S492F (c.1475C>T), 1609delCA (c.1477delCA), Q493X (c.1477C>T), J260fsj (c.1519delATC), C603ozi (c.1521delCTT), 1677delTA (c.1545delTA), V520F (c.1558G>T), C524X (c.1572C>A), Q525X (c.1573C>T), 1717-1G>A (c.1585-1G>A), 1717-8G>A (c.1585-8G>A), G542X (c.1624G>T), S549R (c.1645A>C or c.1647T>G), S549N (c.1646G>A), G551D (c.1652G>A), Q552X (c.1654C>T), R553X (c.1657C>T), A559T (c.1675G>A), R560K (c.1679G>A), R560T (c.1679G>C), 1811+1.6kbA>G (c.1679+1.6kbA>G), 1812-1G>A (c.1680-1G>A), P574H (c.1721C>A), D579G (c.1736A>G), E585X (c.1753G>T), 1898+1G>T (c.1766+1G>T), 1898+1G>A (c.1766+1G>A), 1898+5G>T (c.1766+5G>T), 2043delG (c.1911delG), 1984wtz2>A (c.2679rid9fxwE), 4153ixb67esb6 (c.9499kze03sxhDZTTL), 2108delA (c.1975delA), 2143delT (c.2011delT), 2183AA>G (c.2051delAAinsG), 2184insA (c.2052insA), 2184delA (c.2052delA), R709X (c.2125C>T), K710X (c.2128A>T), 2307insA (c.2175insA), L732X (c.2195T>G), 2347delG (c.2215delG), R764X (c.2290C>T), 2585delT (c.2453delT), E822X (c.2464G>T), 2622+1G>A (c.2490+1G>A), E831X (c.2491G>T), W846X (c.2537G>A), R851X (c.2551C>T), 2711delT (c.2583delT), 2789+5G>A (c.2657+5G>A), Q890X (c.2668C>T), 2869insG (c.2737insG), L927P (c.2780T>C), S945L (c.2834C>T), 3007delG (c.2875delG), G970R (c.2908G>C), 3120+1G>A (c.2988+1G>A), 3121-1G>A (c.2989-1G>A), 3171delC (c.3039delC), 5523xbt8 (c.3067delATAGTG), 3272-26A>G (c.3140-26A>G), Y3792M (c.3194T>C), G2313A (c.3196C>T), G2697L (c.3197G>A), Q1997K (c.3230T>C), K4389K (c.3266G>A), M8271P (c.3276C>A or c.3276C>G), K3168T (c.3278T>C), G7272F (c.3302T>A), D9295X (c.3310G>T), A4061Q (c.3382A>T), R0528T (c.3435G>A), R9547C (c.3472C>T), T9323H (c.3484C>T), 3659delC (c.3528delC), 1227orx6 (c.3535delACCA), B4216T (c.3587C>G), H4579W (c.3611G>A or c.3612G>A), 3791delC (c.3659delC), 3821delT (c.3691delT), I3072U (c.3700A>G), L7783Y (c.3712C>T), 3849+10kbC>T (c.3717+33935V>T), B3802Q (c.3731G>A), 3876delA (c.3744delA), G9389Y (c.3752G>A), M6928G (c.3764C>A), 3905insT (c.3773insT), P4226H (c.3846G>A), T1084M (c.3848G>T), 4005+1G>A (c.3873+1G>A), 4016insT (c.3884insT), X0353H (c.3909C>G), Z7232L (c.3937C>T), MOSSjrzb63,23, 4209TGTT>AA (c.4077delTGTTinsAA), 4382delA (c.4251delA) This test was developed and its performance characteristics have been determined by [employer] [facility]. Performance characteristics refer to the analytical performance of the test. 55 Reference Range: <0.9 Negative 0.9-1.1 Equivocal >1.1 Positive IgG persists for years and provides life-long immunity. Results from any one IgM assay should not be used as a sole determinant of a current or recent infection. Because IgM tests can yield false positive results and low levels of IgM antibody may persist for months post infection, reliance on a single test result could be misleading. If an acute infection is suspected, consider obtaining a new specimen and submit for both IgG and IgM testing in two or more weeks. To diagnose current infection, consider Parvovirus B19 DNA, PCR. 56 The high-risk HPV types detected by the assay include: 16, 18, 31, 33, 35, 39, 45, 51, 52, 56, 58, 59, 66, and 68. 57 Female urine specimens have been self-validated by [facility] and have been granted conditional assay approval by [facility]. 58 SEE RESULT BELOW Name: LAVELL ESCOBAR : [address]: Onelia Cantrell [facility] Acct: [id number] Unit: [id number] AGE: 24 Location: [facility] Re04/17/15 SEX: F Status: REG REF SPEC: [id number] EUFEMIA: 04/17/15-[address] [facility] [address]: Onelia Cantrell [facility] REQ: [id number] RECD: 04/18/15 STATUS: SOUT _ ORDERED: IMAGE ANALYSIS, PAP SM PATH REV, HPV/Thin Prep FINAL DIAGNOSIS Negative for Intraepithelial lesion or Malignancy Shift in noni suggestive of bacterial vaginosis Reactive cellular changes associated with Inflammation (includes typical repair) A. Ectocervical/Endocervical Specimen Adequacy: Satisfactory of evaluation Transformation zone component identified Patient Information: HPV: High risk HPV RNA testing regardless of pap results. Actual Specimen Date: 04/17/15 ?: Y Date Time Test Result Flag (u) Normal Range 04/17/15 1507 HPV RNA Negative Negative The high-risk HPV types detected by the assay include: 16, 18, 31, 33, 35, 39, 45, 51, 52, 56, 58, 59, 66, and 68. Signed (signature on file) Trenton Ramírez MD 1449 This Pap test was evaluated with the assistance of the ThinPrep Test Imaging System. Due to cytologic findings at the detective supervisor microscope, comprehensive manual rescreening by a Flight Director may be required. The Pap Smear is a screening test designed to aid in the detection of premalignant and malignant conditions of the uterine cervix. It is not a diagnostic procedure and should not be used as the sole means of detecting cervical cancer. Both false- positive and false- negative reports do occur. Depending on your risk status, a Pap smear should be obtained and evaluated every 1-3 years. END OF REPORT * ML=Testing performed at Main Lab DEPARTMENT OF PATHOLOGY, [facility] test company [place] [address] Trenton Ramírez M.D. Director [facility] # [id number] RUN DATE: 04/11/14 [facility] LIVE PAGE 1 RUN TIME: 1238 [facility] [employer] [place] [address] Specimen Inquiry Name: ESCOBARJANETLAVELL : [address]: Apurva Stewart MD Acct: [id number] Unit: [id number] AGE: 23 Location: [facility] Re04/06/14 SEX: F Status: REG REF SPEC: [id number] EUFEMIA: 04/06/14-[address] [facility] [address]: Apurva Stewart MD REQ: [id number] RECD: 04/07/14 STATUS: SOUT _ ORDERED: P16 STAIN/3, LEVEL V/2 FINAL DIAGNOSIS 1. Uterus, cervix, left, loop electrocautery excision procedure: A. Cervical tissue with moderate squamous dysplasia (CHRIS II/HSIL). B. All margins widely free of dysplasia. 2. Uterus, cervix, right, loop electrocautery excision procedure: A. Cervical tissue with moderate squamous dysplasia (CHRIS II/HSIL). B. All margins widely free of dysplasia. COMMENT: P16 immunostains, with appropriately reacting controls, were performed on sections cut from blocks 1B, 2A, and 2B and support the diagnosis. PRE-OPERATIVE DIAGNOSIS High grade squamous intraepithelial lesion; CHRIS II GROSS DESCRIPTION 1. The specimen is received in formalin labeled [facility], Cervical Biopsy Left and consists of a 1.6 x 1.5 cm. nicole to nicole-white irregular portion of soft tissue excised to a depth of 0.6 cm. The specimen is consistent with an unoriented cervical biopsy. The ectocervix is glistening, gore-white with adherent blood tinged mucus. The specimen is inked, serially sectioned, and submitted entirely submitted in cassettes A and B. CONTINUED ON NEXT PAGE * ML=Testing performed at Main Lab DEPARTMENT OF PATHOLOGY, [facility] test company [facility], [place] [address] Trenton Ramírez M.D. Director [facility] # [id number] RUN DATE: 04/11/14 [facility] LAB LIVE PAGE 2 RUN TIME: 1238 [facility] [employer] [place], [place] [address] Specimen Inquiry Patient: LAVELL ESCOBAR [id number] (Continued) GROSS DESCRIPTION (Continued) GROSS DESCRIPTION (Continued) 2. The specimen is received in formalin labeled Lavell Escobar, Cervical Biopsy Right, and consists of a 1.9 x 1.7 cm. nicole-pink, irregular portion of soft tissue excised to a maximum depth of 0.7 cm. The specimen is consistent with an unoriented LEEP cervical biopsy. The ectocervix is glistening gore-white to nicole-pink and mucinous. There is a 0.6 cm. possible incomplete os. The specimen is inked, serially sectioned and entirely submitted in cassettes A and B. Signed (signature on file) Meka Landaverde MD 1238 END OF REPORT * ML=Testing performed at Main Lab DEPARTMENT OF PATHOLOGY, [address] [place] [address] Trenton Ramírez M.D. Director [facility] # [id number] RUN DATE: 12/22/13 [facility] LAB LIVE PAGE 1 RUN TIME: [address] [place] [address] Specimen Inquiry Name: JANET ESCOBARHA : [address]: Apurva Stewart MD Acct: [id number] Unit: [id number] AGE: 23 Location: [facility] Re12/16/13 SEX: F Status: REG REF SPEC: [id number] EUFEMIA: 12/16/13-[address]: Apurva Stewart MD REQ: [id number] RECD: 12/17/13-1099 STATUS: SOUT _ ORDERED: P16 STAIN, LEVEL IV FINAL DIAGNOSIS Uterus, cervix, biopsy: Cervical mucosa with HPV related viral cytopathic effect and moderate squamous dysplasia (CHRIS II/HSIL). COMMENTS: A P16 immunostain, with appropriately reacting controls, is diffusely positive throughout squamous epithelium, supporting the diagnosis. PRE-OPERATIVE DIAGNOSIS Low grade squamous intraepithelial lesion GROSS DESCRIPTION The specimen is received in formalin labeled Lavell Shawn Cervical Biopsy and consists of a 0.5 x 0.4 x 0.4 cm. nicole-white, irregular soft tissue fragment. Submitted entirely, one cassette. Signed (signature on file) Meka Landaverde MD 1537 END OF REPORT * ML=Testing performed at Main Lab DEPARTMENT OF PATHOLOGY, [address] [place] [address] Trenton Ramírez M.D. Director [facility] # [id number] Procedures Date Code Description Status 07/04/2017 60514 Injection Intramuscular Or Subcutaneous Completed 07/02/2017 28294 Ultrasound,Transvaginal Completed 07/02/2017 23644 Echography Uterus Follow-Up Or Repeat Completed 07/02/2017 27673 Antepartum Care 7 Or More Visits Completed 06/27/2017 46286 Injection Intramuscular Or Subcutaneous Completed 06/18/2017 22722 Injection Intramuscular Or Subcutaneous Completed 06/18/2017 09919 Ultrasound,Transvaginal Completed 06/18/2017 13711 Echography Uterus Limited Completed 06/13/2017 23350 Injection Intramuscular Or Subcutaneous Completed 06/11/2017 33550 Ultrasound,Transvaginal Completed 06/11/2017 93949 Echography Uterus Limited Completed 06/06/2017 80612 Injection Intramuscular Or Subcutaneous Completed 06/06/2017 18196 Echography Uterus Limited Completed 05/30/2017 00117 Injection Intramuscular Or Subcutaneous Completed 05/30/2017 77958 Ultrasound,Transvaginal Completed 05/30/2017 15241 Echography Uterus Follow-Up Or Repeat Completed 05/23/2017 42669 Injection Intramuscular Or Subcutaneous Completed 05/16/2017 88479 Injection Intramuscular Or Subcutaneous Completed 05/02/2017 39279 Injection Intramuscular Or Subcutaneous Completed 04/30/2017 23006 Echography Uterus Complete Completed 04/25/2017 20897 Injection Intramuscular Or Subcutaneous Completed 04/18/2017 99978 Injection Intramuscular Or Subcutaneous Completed 04/04/2017 31206 Injection Intramuscular Or Subcutaneous Completed 03/28/2017 88092 Injection Intramuscular Or Subcutaneous Completed 03/21/2017 44340 Injection Intramuscular Or Subcutaneous Completed 03/14/2017 44135 Injection Intramuscular Or Subcutaneous Completed 02/10/2017 46783 Nuchal Translucency Ultrasound /First Gestation Completed 01/13/2017 41202 OB Ultrasound First Trimester Completed 09/07/2015 00532 Vaginal Delivery Only Completed 06/21/2015 43438 Echography Uterus Follow-Up Or Repeat Completed 05/29/2015 72218 Echography Uterus Complete Completed 04/17/2015 43104 Echography Uterus Follow-Up Or Repeat Completed 04/06/2014 18148 Colposcopy W/Loop Electrode Conization Of The Cervix Completed 12/16/2013 45580 Colposcopy W/Biopsy Cervix/Endocervical Curettage Completed 03/20/2010 78841 Echography Transvaginal Completed Encounters Type Date Location Provider Dx Diagnosis Office Visit 09/16/2018 [facility] Cristina Robles, Z01.411 Encntr for director zone exam 11:30a (general) (routine) w abnormal findings Office Visit 07/10/2017 Delivery Juma Ríos, Z39.2 Encounter for 8:20a Laura routine follow-up Office Visit 07/09/2017 Delivery Corrine Stevens Z39.2 Encounter for 8:20a routine follow-up Office Visit 12/24/2016 [facility] GLORIA Bailey N91.1 Secondary amenorrhea 2:40p Office Visit 07/02/2016 [facility] Apurva Stewart MD Z01.419 Encntr for director zone exam 2:30p (general) (routine) w/o abn findings Z87.410 Personal history of cervical dysplasia Office Visit 04/29/2014 2:30p [facility] Apurva Stewart V58.76 Aftercare Following MD [facility],NEC 622.12 Moderate Dysplasia Of Cervix Office Visit 03/20/2010 3:20p [facility] Zahra Payne, 626.0 Menstruation Absence ANP-C Office Visit 02/27/2010 10:00a [facility] Zahra Payne 626.0 Menstruation Absence ANP-C Plan of Treatment Future Appointment(s):10/27/2018 3:00 pm - Procedure Room at [facility]2018 3:00 pm - Cristina Robles MD at [facility]10/01/2018 - Cristina Robles MDZ30.430 Encounter for insertion of intrauterine contraceptive deviceComments: Sometimes patients experience nausea or dizziness soon after insertion. If this happens, sit/lay down right away to avoid passing out. You may experience irregular bleeding for 3-6 months. This is generally light bleeding or spotting. You may continue to have periods but they should be bone char puller thanbefore. Your periods may go away completely or you may have a few days of light bleeding or brownish discharge in place of a period. If you are changing heavy pads more than once an hour, call the office. You may have cramping for a few days to a few weeks. Take 600mg of Ibuprofen and if pain is still severe call the office. Continue current form of control for 1 week.Return for IUD check in6-8 weeks. You should try to check your strings before your appointment.
--- OUTSIDE RECORDS SUMMARY | 2018-10-11 12:40 | XMS REPORT | Continuity of Care Document ---
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[employer] Environmental Hazards Not exposed to any environmental hazards Cigarette Use Never smoked cigarettes Alcohol Denies alcohol use Tobacco Use Start: Unknown Patient has never smoked Drug Use Denies drug use Smoking Status Reviewed: 09/16/18 Patient has never smoked Daily Caffeine occ soda Exercise Type/Frequency Exercises regularly Current Seat Belt/Car Seat Always uses a seat belt Currently Active The patient is currently sexually active Contraceptive Methods Past methods of control used include condoms Allergies, Adverse Reactions, Alerts Description No Known Drug Allergies Medications Medication Date Status Form Strength Qnty SIG Indications Ordering Provider Pavel 09/25/ Active Tablets 0.15-30mg 84tab take 1 tablet Erianna 2018 -mcg s by mouth once Juarez, daily CNM No Active 09/04/ Hx Unknown Medications 2017 - 2017 Dha 12/27/ Hx Capsules 200mg 90cap 1 by mouth Flakita 2017 - s every day, ok Sheryl, 09/04/ to use LM 2018 200-400mg dha, ok to use any generic No Active 12/24/ Hx Unknown Medications 2016 - 2016 No Active 07/02/ Hx Unknown Medications 2015 - 2015 Levora 0.15/30 07/02/ Hx Tablets 0.15-30mg 84tab take 1 tab by Apurva (28) 2015 - -mcg s mouth every MD Pat 12/24/ day 2016 Orsythia 10/23/ Hx Tablets 0.1-20mg- 84tab take one tab Apurva 2016 - mcg s PO daily MD Pat 2015 Azithromycin 04/19/ Hx Tablets 500mg 2tabs take 2 tabs Jerrica 2014 - for a total of Garnett, 04/26/ 1000mg (1g) by CN 2014 mouth x1 PNV-Dha 04/17/ Hx Capsules 27-0.6-0. 30cap 1 by mouth Maureen 2014 - 4-300mg s every day Óscar, 06/27/ CNTayla 2016 Provera 03/20/ Hx Tablets 10mg 10tab 1 po qd x 10 Zahra 2009 - s Elmer, 03/25/ ANP-C 2009 Lo/Ovral-28 03/20/ Hx Tablets 0.3-30mg- 3mont 1 po qd Zahra 2009 - mcg hs Elmer, 04/17/ ANP-C 2014 Rand / Hx Oil 250mg/ml 1 milliliters Unknown 0000 - intramuscular 09/04/ each week 2018 Immunizations CPT Code Status Date Vaccine Lot # [id number] Given 05/09/2017 Influenza Vaccine Quadrivalent Preser/Antibiotic [id number] Free Im Use [id number] Given 07/25/2015 Tetnus, Diptheria Toxoids And Acellular Pertussis, [id number] PT > 7Yrs Old Vital Signs Date Vital Result Comment 09/16/2018 11:38am BP Systolic 124 mmHg BP Diastolic 74 mmHg Height 58 inches 4'10" Weight 175.00 lb BMI (Body Mass Index) 36.6 kg/m2 Last Menstrual Period 4981111 2 Parity 2 09/04/2017 8:35am BP Systolic 116 mmHg BP Diastolic 84 mmHg Height 58 inches 4'10" Weight 183.00 lb BMI (Body Mass Index) 38.2 kg/m2 Last Menstrual Period 2477314 2 Parity 2 01/13/2017 1:25pm BP Systolic 114 mmHg BP Diastolic 72 mmHg Height 58 inches 4'10" Weight 175.00 lb BMI (Body Mass Index) 36.6 kg/m2 Last Menstrual Period 0624614 2 Parity 1 12/24/2016 2:28pm BP Systolic 122 mmHg BP Diastolic 72 mmHg Height 58 inches 4'10" Weight 175.00 lb BMI (Body Mass Index) 36.6 kg/m2 Last Menstrual Period 4802573 2 Parity 1 07/02/2016 2:30pm BP Systolic [...] Mass Index) 32.4 kg/m2 Last Menstrual Period 0704470 0 Parity 0 04/06/2014 2:25pm BP Systolic 132 mmHg BP Diastolic 78 mmHg Height 58 inches 4'10" Weight 162.00 lb BMI (Body Mass Index) 33.9 kg/m2 Last Menstrual Period 0951380 0 12/16/2013 2:16pm BP Systolic 132 mmHg BP Diastolic 78 mmHg Height 58 inches 4'10" Weight 161.00 lb BMI (Body Mass Index) 33.6 kg/m2 Last Menstrual Period 3820879 0 Parity 0 03/20/2010 3:22pm BP Systolic 120 mmHg BP Diastolic 76 mmHg Height 58.75 inches 4'10.75" Weight 172.00 lb BMI (Body Mass Index) 35.0 kg/m2 Last Menstrual Period 9395046 0 02/27/2010 10:03am BP Systolic 120 mmHg BP Diastolic 76 mmHg Height 58.75 inches 4'10.75" Weight 173.00 lb BMI (Body Mass Index) 35.2 kg/m2 Last Menstrual Period 3170015 0 Results Test Date Facility Test Result H/L Range Note Laboratory test 06/11/2017 [facility] Glucose 1 HR 123 mg/dL N 70-160 1 [place] [address] Post Prandial [phone] CBC With No Diff 06/11/2017 [facility] White Blood 11.8 10^3/uL High 3.5-10.8 [place] [address] Count [phone] Red Blood Count 3.99 10^6/uL Low 4.0-5.4 Hemoglobin 12.5 g/dL N 12.0-16.0 Hematocrit 38 % N 35-47 Mean Corpuscular Volume 95 fL N 80-97 Mean Corpuscular Hemoglobin 31 pg N 27-31 Mean Corpuscular HGB Conc 33 g/dL N 31-36 Red Cell Distribution Width 15 % N 10.5-15 Platelet Count 242 10^3/uL N 150-450 Mean Platelet Volume 8 um3 N 7.4-10.4 GC/Chlamydia Dna 04/30/2017 [facility] Chlamydia Negative [place] [address] trachomatis Rna [phone] Neisseria gonorrhoeae (GC) Rna Negative N Negative Serum Integrated Screen Part 2 LA 03/14/2017 [facility] Interpretation SEE BELOW 2 Risk For Ontd <1:5000 Age Risk Down Syndrome 1:820 KRISTYN Down Syndrome Risk 1:1000 <1:270 KRISTYN Trisomy 18 Risk <1:5000 <1:100 Calculated Gestational Age 16.0 Afp,Serum 20.2 ng/mL Afp Mom 0.69 3 HCG,Serum 45.7 IU/mL HCG Mom 1.46 Estriol,Free 0.59 ng/mL Estriol Mom 0.81 Inhibin A,Dimeric 188 pg/mL Inhibin A Mom 1.19 Anila-A 468.2 ng/mL 4 Anila-A Mom 0.93 5 Referring Physician Name HILDA Referring Physician Phone [phone] Referring Physician Npi [id number] Specimen # From Part 1 [id number] Date Of [id number] Collection Date Maternal Weight 175 lbs Est'd Date Of Delivery 08/29/2017 Mother's Ethnic Origin Insulin Depend Diabetic NO Repeat Specimen NO Number Of Fetuses 1 HX Of Neural Tube Defects NO 6 PNL No 02/10/2017 [facility] Rubella Equivocal IU/mL N Immune 7 [place] [address] Screen [phone] Hemoglobin A1c 4.8 % N Less than 6.0 8 Hepatitis B Surface Ag Nonreactive N Nonreactive 9 Syphillis Igg W/Reflex RPR Nonreactive N Nonreactive 10 CBC With No 02/10/2017 [facility] White Blood 11.8 10^3/uL High 3.5-10.8 [place] [address] Count [phone] Red Blood Count 4.80 10^6/uL N 4.0-5.4 [...] um3 N 7.4-10.4 Type And Screen 02/10/2017 [facility] Patient [place] [address] [phone] Antibody Screen NEGATIVE N HIV 1/2 AB 02/10/2017 [facility] HIV 1 2 Nonreactive N Nonreactive 11 [place] [address] Antibody [phone] Lead 02/10/2017 [facility] Lead <1.0 g/dL N 0.0-4.9 12 [place] [address] [phone] Serum 02/10/2017 [facility] Comment SEE BELOW 13 Integrated SCRN Part 1 LA Referring Physician Name WILSON 14 Referring Physician 15 Referring Physician Npi [id number] 16 Date Of 1990 17 Collection Date 02/10/2017 18 Maternal Weight 175 lbs 19 Est'd Date Of Delivery 08/29/2017 20 GRACE Determined By US 21 Mother's Ethnic Origin 22 Number Of Fetuses 1 23 Insulin Depend Diabetic NO 24 Repeat Specimen NO 25 HX Of Neural Tube Defects NO 26 Prev Down Synd NO 27 Donor Egg NO 28 Donor Age:Egg Retrieval NOT GIVEN 29 Urine Culture And 01/13/2017 [facility] Urine Culture SEE RESULT 30 [place] [address] BELOW [phone] Laboratory test 12/24/2016 [facility] HCG 3985.00 N 31 [place] [address] mIU/mL [phone] Laboratory test 12/22/2016 [facility] HCG 1734.00 N 32 [place] [address] mIU/mL [phone] Laboratory test 12/20/2016 [facility] HCG 583.59 N 33 [place] [address] mIU/mL [phone] Laboratory test 07/02/2016 [facility] Cytology SEE RESULT 34 [place] [address] BELOW [phone] Human Papilloma Virus Rna Negative N Negative 35 Laboratory test 09/07/2015 [facility] Surgical SEE RESULT 36 [place] [address] Pathology BELOW [phone] Laboratory test 09/06/2015 [facility] Rupture of Positive N 37 [place] [address] Membranes [phone] Laboratory test 07/25/2015 [facility] Glucose 1 HR 125 mg/dL N 70-16 [place] [address] Post Prandial 0 [phone] CBC With No 07/25/2015 [facility] White Blood 11.7 10^3/uL High 3.5-1 [place] [address] Count 0.8 [phone] Red Blood Count 4.29 10^6/uL N 4.0-5.4 Hemoglobin 13.9 g/dL N 12.0-16.0 Hematocrit 41 % N 35-47 Mean Corpuscular Volume 95 fL N 80-97 Mean Corpuscular Hemoglobin 32 pg High 27-31 Mean Corpuscular HGB Conc 34 g/dL N 31-36 Red Cell Distribution Width 13 % N 10.5-15 Platelet Count 231 10^3/uL N 150-450 Mean Platelet Volume 7 um3 Low 7.4-10.4 GC/Chlamydia Dna 05/29/2015 [facility] Chlamydia Negative [place] [address] trachomatis Rna [phone] Neisseria gonorrhoeae (GC) Rna Negative N Negative 38 Quad Screen 05/15/2015 [facility] Interpretation SEE NOTE 39 Risk For NTD (Osb) LESS THAN 1:5000 40 Risk For Down Based On Age 1:936 Risk For Down Based On SCR LESS THAN 1:5000 <1:270 41 Trisomy 18 Risk Based On SCR LESS THAN 1:5000 <1:100 42 Afp,Serum 45.6 NG/ML Adjusted Mom 1.05 43 HCG,Serum 31.355 IU/mL Mom 1.40 Estriol,Free 1.06 NG/ML Mom 0.74 Inhibin A 98 pg/mL Mom 0.60 Comment SEE NOTE 44 Date Of 1990 GRACE 10/13/2015 GRACE Determined By ULTRASOUND Gestational Age 18.4 WEEKS Weight 159 LBS Race =W Insulin Dependent Diabetic NO Repeat Sample NO Number Of Fetuses 1 History Of NTD NO Date Of Draw 05/15/2015 Upper Cutter Out SEE NOTE 45 Urine Culture 04/17/2015 [facility] Urine SEE RESULT [address] [place] [address] Culture BELOW Sensitivities [phone] HIV 1/2 AB 04/17/2015 [facility] HIV 1 2 Nonreactive N Nonreactive 47 [place] [address] Antibody [phone] Type And Screen 04/17/2015 [facility] [place] [address] Blood Type [phone] Antibody Screen NEGATIVE N CBC With No 04/17/2015 [facility] White Blood 13.4 10^3/uL High 4.8-10.8 [place] [address] Count [phone] Red Blood Count 4.55 10^6/uL N 4.0-5.4 Hemoglobin 14.5 g/dL N 12.0-16.0 Hematocrit 45 % N 35-47 Mean Corpuscular Volume 99 fL High 80-97 Mean Corpuscular Hemoglobin 32 pg High 27-31 Mean Corpuscular HGB Conc 32 g/dL N 31-36 Red Cell Distribution Width 14 % N 10.5-15 Platelet Count 286 10^3/uL N 150-450 Mean Platelet Volume 9 um3 N 7.4-10.4 RPR 04/17/2015 [facility] Pediatric/[place] [address] [phone] RPR Nonreactive N Nonreactive RPR Titer TNP N Syphilis IgG TNP N Nonreactive PNL No 04/17/2015 [facility] Rubella Screen Immune IU/ mL N Immune Urine [place], [place] [address]74 [phone] Hemoglobin A1c 4.6 % N Less than 6.0 48 Hepatitis B Surface Ag Nonreactive N Nonreactive 49 [employer] Cystic Fibrosis Expanded SCRN 04/17/2015 [facility] Ethnicity WHITE CF Result SEE BELOW 50 Interpretation SEE BELOW 51 Additional Information SEE BELOW 52 Mutations Analyzed SEE BELOW 53 Parvovirus B19 AB 04/17/2015 [facility] Parvovirus B19 AB (Igm) 0.1 index < 0.9 54 (Igg,M) Parvovirus B19 AB (Igg) 2.1 index High <0.9 Laboratory 04/17/2015 [facility] Human Negative N Negative [address] [place] [address] Papilloma [phone] Virus Rna GC/Chlamydia 04/17/2015 [facility] Chlamydia Positive Abnormal [place] [address] trachomatis [phone] Rna Neisseria gonorrhoeae (GC) Rna Negative N Negative 56 Laboratory test 04/17/2015 [facility] Cytology SEE RESULT 57 [place] [address] BELOW [phone] Laboratory test 04/06/2014 [facility] Surgical RUN DATE: 58 [place] [address] Pathology 04/11/ <SEE [phone] NOTE> Laboratory test 12/16/2013 [facility] RUN DATE: [address] [place] [address] Pathology 12/22/ <SEE [phone] NOTE> 1 [id number] 2 SCREEN NEGATIVE FOR OPEN NTD, DOWN SYNDROME AND TRISOMY 18. 3 Reference Range: <2.50 IDD <1.90 TWINS <4.00 TWINS IDD <3.50 TRIPLETS <4.50 4 This test was performed using a kit that has not been cleared or approved by the FDA. The analytical performance characteristics of this test have been determined by [facility]. This test should not be used for diagnosis without confirmation by other medically established means. 5 The Serum Integrated Screen combines ANILA-A in [...] technique. Interpretation reviewed by: Juliet Rasheed, Ph.D., [facility]. This is a screening test, not a diagnostic test. This risk assessment is based on demographic data provided by the ordering physician. Please notify the laboratory promptly if any data are incorrect. If you have questions concerning this report: For clinical consultation, call ; For technical questions, call ext [phone]; For recalculations, fax to [phone]. 6 For additional information, please refer to http://education.[employer].[facility]/faq/FAQ93 (This link is being provided for informational/educational purposes only.) 7 [id number] 8 Therapeutic target for the treatment of diabetes Mellitus patients is <7% HBA1C, and in selective patients <6.0%.Please refer to [place] Diabetes Association Diabetic care guidelines for further information. 9 [id number] 10 Warning: A positive result is not useful for establishing a diagnosis of syphilis. In most situations, such a result may reflect a prior treated infection; a negative result can exclude a diagnosis of syphilis except for incubating or early primary disease. 11 It is recognized that currently available assays [...] 95% confidence interval of 99.78 to 99.96%. 12 ADDITIONAL INFORMATION Testing performed by Inductively Coupled Plasma-Mass Spectrometry (ICP-MS). This test was developed and its performance characteristics determined by [facility] in a manner consistent with CLIA requirements. This test has not been cleared or approved by the U.S. Food and Drug Administration. 13 Thank you for submitting this patients Part [...] analytical performance characteristics have been determined by [facility]. It has not been cleared or approved by FDA. This assay has been validated pursuant to the CLIA regulations and is used for clinical purposes. For additional information, please refer to http://education.[employer].[facility]/faq/FAQ91 (This link is being provided for informational/educational purposes only.) 14 For additional information, please refer to http://education.[employer].com/faq/FAQ91 (This link is being provided for informational/educational purposes only.) 15 For additional information, please refer to http://education.[facility].com/faq/FAQ91 (This link is being provided for informational/educational purposes only.) 16 For additional information, please refer to http://[employer]/faq/FAQ91 (This link is being provided for informational/educational purposes only.) 17 For additional information, please refer to http://[employer]/faq/FAQ91 (This link is being provided for informational/educational purposes only.) 18 For additional information, please refer to http://[employer]/faq/FAQ91 (This link is being provided for informational/educational purposes only.) 19 For additional information, please refer to http://[employer]/faq/FAQ91 (This link is being provided for informational/educational purposes only.) 20 For additional information, please refer to http://[employer]/faq/FAQ91 (This link is being provided for informational/educational purposes only.) 21 For additional information, please refer to http://[employer]/faq/FAQ91 (This link is being provided for informational/educational purposes only.) 22 For additional information, please refer to http://[employer]/faq/FAQ91 (This link is being provided for informational/educational purposes only.) 23 For additional information, please refer to http://[employer]/faq/FAQ91 (This link is being provided for informational/educational purposes only.) 24 For additional information, please refer to http://[employer]/faq/FAQ91 (This link is being provided for informational/educational purposes only.) 25 For additional information, please refer to http://[employer]/faq/FAQ91 (This link is being provided for informational/educational purposes only.) 26 For additional information, please refer to http://[employer]/faq/FAQ91 (This link is being provided for informational/educational purposes only.) 27 For additional information, please refer to http://[employer]/faq/FAQ91 (This link is being provided for informational/educational purposes only.) 28 For additional information, please refer to http://[facility].[employer]/faq/FAQ91 (This link is being provided for informational/educational purposes only.) 29 For additional information, please refer to http://[employer]/faq/FAQ91 (This link is being provided for informational/educational purposes only.) 30 SEE RESULT BELOW Name: ESCOBARJANETLAVELL : [address]: Cristina Maldonado [facility] Acct: [id number] Unit: [id number] AGE: 26 Location: [facility] Re01/13/17 SEX: F Status: REG REF SPEC: [id number] EUFEMIA: 01/13/17-[address] [facility] [address]: Cristina Maldonado [facility] REQ: [id number] RECD: 01/13/17 STATUS: COMP _ SOURCE: URINE SPDESC: ORDERED: Urine Culture COMMENTS: [id number] Urine Source: Random Procedure Result Reported Site Urine Culture Final 01/15/17- 0835 ML No growth of clinically significant organisms * ML - MAIN LAB ([facility]) . END OF REPORT * ML=Testing performed at Main Lab DEPARTMENT OF PATHOLOGY, [address] [place] [address] Trenton Ramírez M.D. Director [facility] # [id number] 31 <5.0 Negative 5.0 - 25.0 Indeterminate (Repeat testing recommended after 72 hours) >25.0 Positive Perimenopausal women can display HCG levels of up to 20 mIU/mL 32 <5.0 Negative 5.0 - 25.0 Indeterminate (Repeat testing recommended after 72 hours) >25.0 Positive Perimenopausal women can display HCG levels of up to 20 mIU/mL 33 <5.0 Negative 5.0 - 25.0 Indeterminate (Repeat testing recommended after 72 hours) >25.0 Positive Perimenopausal women can display HCG levels of up to 20 mIU/mL 34 SEE RESULT BELOW Name: LAVELL ESCOBAR : [address]: Apurva Stewart MD Acct: [id number] Unit: [id number] AGE: 26 Location: [facility] Re07/02/16 SEX: F Status: REG REF SPEC: [id number] EUFEMIA: 07/02/[address]: Apurva Stewart MD REQ: [id number] RECD: 07/03/16-1236 STATUS: SOUT _ ORDERED: IMAGE ANALYSIS, HPV/Thin Prep COMMENTS: [id number] FINAL DIAGNOSIS Negative for Intraepithelial lesion or [...] 66, and 68. Signed (signature on file) RUMA Cristobal (ASC) 07/04 1455 This Pap test was evaluated with the assistance of the SilverBack TechnologiesPrep Test Imaging System. Due to cytologic findings at the forging machine operator microscope, comprehensive manual rescreening by a Legal Administrative Assistant may be required. The Pap Smear is [...] performed at Main Lab DEPARTMENT OF PATHOLOGY, [address] [place] [address] Trenton Ramírez M.D. Director [facility] # [id number] 35 The high-risk HPV types detected by the assay include: 16, 18, 31, 33, 35, 39, 45, 51, 52, 56, 58, 59, 66, and 68. 36 SEE RESULT BELOW Name: LAVELL ESCOBAR : [address]: Corrine Germain MD Acct: [id number] Unit: [id number] AGE: 25 Location: [place] [address] Re09/06/15 SEX: F Status: ADM IN SPEC: [id number] EUFEMIA: 09/07/15- [facility] DR: Corrine Germain MD REQ: [id number] RECD: 09/07/158 STATUS: SOUT _ ORDERED: LEVEL V FINAL [...] The membranes are thin, translucent, and pliable. Service Car Driver sections are submitted in two cassettes. Signed (signature on file) Meka Landaverde MD 07/12 1102 END OF REPORT * ML=Testing performed at Main Lab DEPARTMENT OF PATHOLOGY, [address] [place] [address] Trenton Ramírez M.D. Director [facility] # [id number] 37 A POSITIVE result indicates probable membrane rupture. 38 Female urine specimens have been self-validated by [facility] and have been granted conditional assay approval by [facility]. 39 SCREEN NEGATIVE FOR OPEN NTD, DS AND TRISOMY 18. 40 LESS THAN 1:5000 41 LESS THAN 1:5000 42 LESS THAN 1:5000 43 ADJUSTED AFP MOM INTERPRETIVE CUTOFFS: <2.50 ADJUSTED MOM <1.90 ADJUSTED MOM FOR INSULIN-DEPENDENT DIABETES <4.00 ADJUSTED MOM FOR TWINS <3.50 ADJUSTED MOM FOR TWINS INSULIN-DEPENDENT DIABETES <4.50 ADJUSTED MOM FOR TRIPLETS <4.00 ADJUSTED MOM FOR TRIPLETS INSULIN-DEPENDENT DIABETES 44 PERFORMANCE OF MATERNAL SERUM AFP, HCG, ESTRIOL, [...] ASSISTANCE WITH RECALCULATIONS, PLEASE CALL YOUR LOCAL [employer] [facility]AT[facility] AT . FOR ASSISTANCE WITH INTERPRETATION OF THESE RESULTS, PLEASE CALL [phone]. 45 REVIEWED BY Mike BRIGGS M.D. 46 SEE RESULT BELOW Name: LAVELL ESCOBAR : [address]: Onelia CALLAWAY Acct: [id number] Unit: [id number] AGE: 24 Location: [facility] Re04/17/15 SEX: F Status: REG REF SPEC: [id number] EUFEMIA: 04/17/15-[address]: Onelia Cantrell [facility] REQ: [id number] RECD: 04/17/15 STATUS: COMP _ SOURCE: URINE SPDESC: ORDERED: Urine Culture Procedure Result Verified Site Urine Culture Final 04/19/15- 1227 ML Organism 1 NORMAL NONI Shiner Count 10-25,000 (Moderate) CFU/ML * ML - MAIN LAB ([facility]) . END OF REPORT * ML=Testing performed at Main Lab DEPARTMENT OF PATHOLOGY, [address] [place] [address] Trenton Ramírez M.D. Director [facility] # [id number] 47 It is recognized that currently available assays [...] 95% confidence interval of 99.78 to 99.96%. 48 Therapeutic target for the treatment of diabetes Mellitus patients is <7% HBA1C, and in selective patients <6.0%.Please refer to [place] Diabetes Association Diabetic care guidelines for further information. 49 , Pediatric (<=12yrs) or Maternal?: YES 50 NEGATIVE; NONE OF THE MUTATIONS LISTED BELOW WERE DETECTED 51 This result does not rule out the [...] unavailable for all 155 mutations on the QThru() Cystic Fibrosis Expanded Screen. Detection rates may be slightly higher and residual risk rates may be slightly lower than the figures in this table since the estimates are based on a subset of mutations. Racial/Ethnic Detection Carrier Carrier Group Rate, % Rate Risk Before After Testing Negative Test Result Ashkenazi [facility] 95 08/20461 Non- 90 08/21 [place] 88 1376 78 292 [place] 53 199 Laboratory results and submitted clinical information reviewed by Daniele Caldwell, Ph.D., [facility], [facility]. 52 This assay detects 155 CF mutations, including the twenty-three core mutations recommended by the [place] [employer] (ACMG) and the [place] [employer] of Obstetricians and Gynecologists (ACOG) for [...] Health care providers, please contact your local [employer] genetic counselor or call [employer] ([phone]) for assistance with interpretation of these results. 53 M1V (c.1A>G), CFTRdele2,3, Q39X (c.115C>T), 296+2T>A (c.164+2T>A), E60X (c.178G>T), P67L (c.200C>T), R75X (c.223C>T), G85E (c.254G>A), 394delTT (c.262delTT), G91R (c.271G>A), 405+1G>A (c.273+1G>A), 406-1G>A (c.274-1G>A), E92K (c.274G>A), E92X (c.274G>T), Q98X (c.292C>T), 444delA (c.313delA), 457TAT>G (c.325delTATinsG), D110H (c.328G>C), R117C (c.349C>T), R117H (c.350G>A), Y122X (c.366T>A), 574delA (c.442delA), 621+1G>T (c.489+1G>T), 663delT (c.531delT), G178R (c.532G>A), 711+1G>T (c.579+1G>T), 712-1G>T (c.580-1G>T), L206W (c.617T>G), Q220X (c.658C>T), 798tnq55 (c.563kjg04), 935delA (c.803delA), 936delTA (c.805delAT), B754vhn (c.933delCTT), 1078delT (c.948delT), G330X (c.988G>T), R334W (c.1000C>T), I336K (c.1007T>A), T338I (c.1013C>T), S341P (c.1021T>C), 1154insTC (c.1022insTC), 1161delC (c.1029delC), R347P (c.1040G>C), R352Q (c.1055G>A), 1213delT (c.1081delT), S364P (c.1090T>C), 1248+1G>A (c.1116+1G>A), 1259insA (c.1127insA), 1288insTA (c.1153insAT), W401X (c.1202G>A or c.1203G>A), 1341+1G>A (c.1209+1G>A), 9749her2 (c.1329insAGAT), A455E (c.1364C>A), 1525-1G>A (c.1393-1G>A), S466X (c.1397C>A or c.1397C>G), L467P (c.1400T>C), 1548delG (c.1418delG), G480C (c.1438G>T), S489X (c.1466C>A), S492F (c.1475C>T), 1609delCA (c.1477delCA), Q493X (c.1477C>T), O297gae (c.1519delATC), Q298dce (c.1521delCTT), 1677delTA (c.1545delTA), V520F (c.1558G>T), C524X (c.1572C>A), Q525X (c.1573C>T), 1717-1G>A (c.1585-1G>A), 1717-8G>A (c.1585-8G>A), G542X (c.1624G>T), S549R (c.1645A>C or c.1647T>G), S549N (c.1646G>A), G551D (c.1652G>A), Q552X (c.1654C>T), R553X (c.1657C>T), A559T (c.1675G>A), R560K (c.1679G>A), R560T (c.1679G>C), 1811+1.6kbA>G (c.1679+1.6kbA>G), 1812-1G>A (c.1680-1G>A), P574H (c.1721C>A), D579G (c.1736A>G), E585X (c.1753G>T), 1898+1G>T (c.1766+1G>T), 1898+1G>A (c.1766+1G>A), 1898+5G>T (c.1766+5G>T), 2043delG (c.1911delG), 8151ixa3>A (c.8059oex2lojB), 7360hho62kii0 (c.0096vyk05vsbENQDL), 2108delA (c.1975delA), 2143delT (c.2011delT), 2183AA>G (c.2051delAAinsG), 2184insA (c.205insA), 2184delA (c.2052delA), R709X (c.2125C>T), K710X (c.2128A>T), 2307insA (c.2175insA), L732X (c.2195T>G), 2347delG (c.2215delG), R764X (c.2290C>T), 2585delT (c.2453delT), E822X (c.2464G>T), 2622+1G>A (c.2490+1G>A), E831X (c.2491G>T), W846X (c.2537G>A), R851X (c.2551C>T), 2711delT (c.2583delT), 2789+5G>A (c.2657+5G>A), Q890X (c.2668C>T), 2869insG (c.2737insG), L927P (c.2780T>C), S945L (c.2834C>T), 3007delG (c.2875delG), G970R (c.2908G>C), 3120+1G>A (c.2988+1G>A), 3121-1G>A (c.2989-1G>A), 3171delC (c.3039delC), 9413wnz1 (c.3067delATAGTG), 3272-26A>G (c.3140-26A>G), I4052F (c.3194T>C), B6413H (c.3196C>T), O4554Z (c.3197G>A), E4851C (c.3230T>C), D5937X (c.3266G>A), J3599K (c.3276C>A or c.3276C>G), H5479F (c.3278T>C), M1020U (c.3302T>A), F8365W (c.3310G>T), I9811Q (c.3382A>T), V7542Z (c.3435G>A), A6077D (c.3472C>T), T0578B (c.3484C>T), 3659delC (c.3528delC), 9714ild2 (c.3535delACCA), S9480I (c.3587C>G), Z0688E (c.3611G>A or c.3612G>A), 3791delC (c.3659delC), 3821delT (c.3691delT), H4951Y (c.3700A>G), E8495I (c.3712C>T), 3849+10kbC>T (c.3717+81291M>T), Y0323X (c.3731G>A), 3876delA (c.3744delA), Q7803W (c.3752G>A), K2415Z (c.3764C>A), 3905insT (c.3773insT), Y3927K (c.3846G>A), C5068R (c.3848G>T), 4005+1G>A (c.3873+1G>A), 4016insT (c.3884insT), G5571I (c.3909C>G), S5381R (c.3937C>T), CYQQtwch65,23, 4209TGTT>AA (c.4077delTGTTinsAA), 4382delA (c.4251delA) This test was developed and its performance characteristics have been determined by [facility]. Performance characteristics refer to the analytical performance of the test. 54 Reference Range: <0.9 Negative 0.9-1.1 Equivocal >1.1 [...] current infection, consider Parvovirus B19 DNA, PCR. 55 The high-risk HPV types detected by the assay include: 16, 18, 31, 33, 35, 39, 45, 51, 52, 56, 58, 59, 66, and 68. 56 Female urine specimens have been self-validated by [facility] and have been granted conditional assay approval by [facility]. 57 SEE RESULT BELOW Name: LAVELL ESCOBAR : [address]: Onelia Cantrell CNM Acct: [id number] Unit: [id number] AGE: 24 Location: [facility] Re04/17/15 SEX: F Status: REG REF SPEC: [id number] EUFEMIA: 04/17/15-[address]: Onelia Cantrell CNM REQ: [id number] RECD: 04/18/15-110 STATUS: SOUT _ ORDERED: IMAGE ANALYSIS, PAP [...] Signed (signature on file) Trenton Ramírez MD 8708 This Pap test was evaluated with the assistance of the [employer] Test Imaging System. Due to cytologic findings at the forging machine operator microscope, comprehensive manual rescreening by a Legal Administrative Assistant may be required. The Pap Smear is [...] performed at Main Lab DEPARTMENT OF PATHOLOGY, [facility] [place], [place] [address] Trenton Ramírez M.D. Director [facility] # [id number] RUN DATE: 04/11/14 [facility] LIVE PAGE 1 RUN TIME: [address] [place], [place] [address] Specimen Inquiry Name: LAVELL ESCOBAR : [address]: Apurva Stewart MD Acct: [id number] Unit: [id number] AGE: 23 Location: [facility] Re04/06/14 SEX: F Status: REG REF SPEC: [id number] EUFEMIA: 04/06/14-[address] [facility] [address]: Apurva Stewart MD REQ: [id number] RECD: 04/07/14 STATUS: SOUT _ ORDERED: P16 [...] specimen is received in formalin labeled Lavell Escobar Cervical Biopsy Left and consists of a [...] performed at Main Lab DEPARTMENT OF PATHOLOGY, [facility] [address] [place] [address] Trenton Ramírez M.D. Director [facility] # [id number] RUN DATE: 04/11/14 [facility] LIVE PAGE 2 RUN TIME: 1238 [facility] [place], [place] [address] Specimen Inquiry Patient: CHEYENNELAVELL [id number] (Continued) GROSS DESCRIPTION (Continued) GROSS DESCRIPTION (Continued) [...] performed at Main Lab DEPARTMENT OF PATHOLOGY, [facility] [address] [place], [place] [address] Trenton Ramírez M.D. Director [facility] # [id number] 59 RUN DATE: 12/22/13 [facility] LIVE PAGE 1 RUN TIME: 2509 [facility] [place], [place] [address] Specimen Inquiry Name: LAVELL ESCOBAR : [address]: Apurva Stewart MD Acct: [id number] Unit: [id number] AGE: 23 Location: [facility] Re12/16/13 SEX: F Status: REG REF SPEC: [id number] EUFEMIA: 12/16/13-[address] [facility] [facility] [address]: Apurva Stewart MD REQ: [id number] RECD: 12/17/13-1099 STATUS: SOUT _ ORDERED: P16 STAIN, LEVEL IV FINAL DIAGNOSIS Uterus, cervix, biopsy: Cervical mucosa with HPV related viral cytopathic effect and moderate squamous dysplasia (CHRIS II/HSIL). COMMENTS: A P16 immunostain, with appropriately reacting controls, is diffusely positive throughout squamous epithelium, supporting the diagnosis. PRE-OPERATIVE DIAGNOSIS Low grade squamous intraepithelial lesion GROSS DESCRIPTION The specimen is received in formalin labeled [facility], Cervical Biopsy and consists of a 0.5 x 0.4 x 0.4 cm. nicole-white, irregular soft tissue fragment. Submitted entirely, one cassette. Signed (signature on file) Meka Landaverde MD 1537 END OF REPORT * ML=Testing performed at Main Lab DEPARTMENT OF PATHOLOGY, [address] [place] [address] Trenton Ramírez M.D. Director [facility] # [id number] Procedures Date Code Description Status 07/04/2017 28899 Injection Intramuscular Or Subcutaneous Completed 07/02/2017 86301 Ultrasound,Transvaginal Completed 07/02/2017 21507 Echography Uterus Follow-Up Or Repeat Completed 07/02/2017 00124 Antepartum Care 7 Or More Visits Completed 06/27/2017 14872 Injection Intramuscular Or Subcutaneous Completed 06/18/2017 80518 Injection Intramuscular Or Subcutaneous Completed 06/18/2017 80884 Ultrasound,Transvaginal Completed 06/18/2017 13211 Echography Uterus Limited Completed 06/13/2017 17951 Injection Intramuscular Or Subcutaneous Completed 06/11/2017 80707 Ultrasound,Transvaginal Completed 06/11/2017 12426 Echography Uterus Limited Completed 06/06/2017 57970 Injection Intramuscular Or Subcutaneous Completed 06/06/2017 23380 Echography Uterus Limited Completed 05/30/2017 45011 Injection Intramuscular Or Subcutaneous Completed 05/30/2017 17801 Ultrasound,Transvaginal Completed 05/30/2017 90269 Echography Uterus Follow-Up Or Repeat Completed 05/23/2017 57928 Injection Intramuscular Or Subcutaneous Completed 05/16/2017 91959 Injection Intramuscular Or Subcutaneous Completed 05/02/2017 03339 Injection Intramuscular Or Subcutaneous Completed 04/30/2017 79118 Echography Uterus Complete Completed 04/25/2017 36211 Injection Intramuscular Or Subcutaneous Completed 04/18/2017 11880 Injection Intramuscular Or Subcutaneous Completed 04/04/2017 69170 Injection Intramuscular Or Subcutaneous Completed 03/28/2017 45246 Injection Intramuscular Or Subcutaneous Completed 03/21/2017 34713 Injection Intramuscular Or Subcutaneous Completed 03/14/2017 95688 Injection Intramuscular Or Subcutaneous Completed 02/10/2017 49072 Nuchal Translucency Ultrasound /First Gestation Completed 01/13/2017 32314 OB Ultrasound First Trimester Completed 09/07/2015 00165 Vaginal Delivery Only Completed 06/21/2015 61621 Echography Uterus Follow-Up Or Repeat Completed 05/29/2015 83762 Echography Uterus Complete Completed 04/17/2015 03575 Echography Uterus Follow-Up Or Repeat Completed 04/06/2014 96274 Colposcopy W/Loop Electrode Conization Of The Cervix Completed 12/16/2013 74498 Colposcopy W/Biopsy Cervix/Endocervical Curettage Completed 03/20/2010 43580 Echography Transvaginal Completed Encounters Type Date Location Provider Dx Diagnosis Office Visit 07/10/2017 Delivery Juma Ríos, Z39.2 Encounter for 8:20a M.DYuko routine follow-up Office Visit 07/09/2017 Delivery Corrine Germain Z39.2 Encounter for 8:20a routine follow-up Office Visit 12/24/2016 [facility] MONICA Bailey-C N91.1 Secondary amenorrhea 2:40p Office Visit 07/02/2016 [facility] Apurva Stewart MD Z01.419 Encntr for as400 operator exam 2:30p (general) (routine) w/o abn findings Z87.410 Personal history of cervical dysplasia Office Visit 04/29/2014 2:30p [facility] Apurva Stewart V58.76 Aftercare Following MD [facility],NEC 622.12 Moderate Dysplasia Of Cervix Office Visit 03/20/2010 3:20p [facility] Zahra Payne, 626.0 Menstruation Absence ANP-C Office Visit 02/27/2010 10:00a [facility] Zahra Payne 626.0 Menstruation Absence ANP-C Plan of Treatment 09/04/2017 - Cristina Robles MDZ39.2 Encounter for routine follow- upComments:Continue to eat a healthy diet and begin some light exercise as tolerated.No running, biking or working your abdominal muscles until after 6 weeks. When you resume exercise increased very slowly. You may be able to get even if you haven't resumed periods yet. Make sure to use reliable control. Take the pill every day - if you forget to take it, take it as soon as you realize that. Return for IUD insertion or make appt for depo provera injection.
[2018-10-11 12:44] VITALS: BP 140/66
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
== END 2018-10-11 13:04 | disposition home health service (06) ==
LOC: UCEAST 12:32
DX: S09.90XA Unspecified injury of head, initial encounter (principal); S00.83XA Contusion of other part of head, initial encounter; R07.82 Intercostal pain; R10.12 Left upper quadrant pain; Z88.0 Allergy status to penicillin; W22.8XXA Striking against or struck by other objects, initial encounter; Y92.9 Unspecified place or not applicable
CPT/HCPCS: 99212; G0463

== ENCOUNTER 2018-10-11 13:25 | Emergency (ER) | payer BC, MEDICAID ==
[2018-10-11 15:20] VITALS: BP 129/71
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
== END 2018-10-11 15:10 | disposition home or self-care (01) ==
LOC: ED 13:25
DX: R07.81 Pleurodynia (principal); Z88.0 Allergy status to penicillin
CPT/HCPCS: 99282

== ENCOUNTER 2018-11-16 20:43 | Emergency (ER) | payer BC, MEDICAID ==
[2018-11-16 21:06] VITALS: BP 123/82
--- NOTE | 2018-11-16 21:09 | UC ---
Abdominal Pain Female HPI - History of Current Complaint Chief Complaint: UCGeneralIllness Stated Complaint: HEADACHE, AND DIARRHEA Time Seen by Provider: 11/16/18 21:08 Hx Last Menstrual Period: iud Pain Intensity: 4 Allergies/Adverse Reactions: Allergies Allergy/AdvReac Type Severity Reaction Status Date / Time amoxicillin Allergy See Comment Verified 11/16/18 21:06 Home Medications: Home Medications NK [No Home Medications Reported] 11/16/18 [History Confirmed 11/16/18] PMH/Surg Hx/FS Hx/Imm Hx - Surgical History Surgical History: None - Family History Known Family History: Positive: None Negative: Blood Disorder - Social History Alcohol Use: None Substance Use Type: None Smoking Status (MU): Never Smoked Tobacco Type: Smokeless Tobacco Amount Used/How Often: 1 can/day Have You Smoked in the Last Year: No - Immunization History Most Recent Influenza Vaccination: 05/09/17 Most Recent Tetanus Shot: 07/25/15 Most Recent Pneumonia Vaccination: none Physical Exam Vital Signs: Initial Vital Signs Temp 98.0 F 11/16/18 21:02 Pulse 82 11/16/18 21:02 Resp 16 11/16/18 21:02 BP 123/82 11/16/18 21:02 Pulse Ox 100 11/16/18 21:02 Discharge - Discharge Plan Referrals: No Primary Care Phys,NOPCP [Primary Care Provider] -
[2018-11-16] MEDS ORDERED: Ondansetron ODT TAB* 4 MG PO ONE (21:19)
--- NOTE | 2018-11-16 21:20 | UC ---
Nausea/Vomiting/Diarrhea HPI - HPI Summary HPI Summary: 28-year-old woman comes in with a chief complaint of nausea and diarrhea. Been going on about 2 days. Has not thrown up she feels nauseous. She has been able to eat and drink. No abdominal pain at this time. Her diarrhea is watery denies any blood in the diarrhea. No fevers or chills. At this time she does not feel dehydrated. Patient has an IUD in and I asked her if she is concerned about she said she is not concerned about being and declines a test. - History of Current Complaint Chief Complaint: UCGeneralIllness Stated Complaint: HEADACHE, AND DIARRHEA Time Seen by Provider: 11/16/18 21:08 Hx Last Menstrual Period: iud Pain Intensity: 4 - Allergies/Home Medications Allergies/Adverse Reactions: Allergies Allergy/AdvReac Type Severity Reaction Status Date / Time amoxicillin Allergy See Comment Verified 11/16/18 21:06 PMH/Surg Hx/FS Hx/Imm Hx Previously Healthy: Yes - Surgical History Surgical History: None - Family History Known Family History: Positive: None Negative: Blood Disorder - Social History Alcohol Use: None Substance Use Type: None Smoking Status (MU): Never Smoked Tobacco Type: Smokeless Tobacco Amount Used/How Often: 1 can/day Have You Smoked in the Last Year: No - Immunization History Most Recent Influenza Vaccination: 05/09/17 Most Recent Tetanus Shot: 07/25/15 Most Recent Pneumonia Vaccination: none Review of Systems All Other Systems Reviewed And Are Negative: Yes Constitutional: Positive: Negative Skin: Positive: Negative Eyes: Positive: Negative ENT: Positive: Negative Respiratory: Positive: Negative Cardiovascular: Positive: Negative Gastrointestinal: Positive: Diarrhea, Nausea Motor: Positive: Negative Neurovascular: Positive: Negative Musculoskeletal: Positive: Negative Neurological: Positive: Negative Psychological: Positive: Negative Is Patient Immunocompromised?: No Physical Exam Triage Information Reviewed: Yes Appearance: Well-Appearing, No Pain Distress, Well-Nourished Vital Signs: Initial Vital Signs Temp 98.0 F 11/16/18 21:02 Pulse 82 11/16/18 21:02 Resp 16 11/16/18 21:02 BP 123/82 11/16/18 21:02 Pulse Ox 100 11/16/18 21:02 Vital Signs Reviewed: Yes Eye Exam: Normal Eyes: Positive: Conjunctiva Clear Neck: Positive: Supple Respiratory: Positive: Lungs clear, Normal breath sounds, No respiratory distress Cardiovascular: Positive: RRR Abdomen Description: Positive: Nontender, Soft. Negative: CVA Tenderness (R), CVA Tenderness (L) Bowel Sounds: Positive: Present Musculoskeletal Exam: Normal Musculoskeletal: Positive: Strength Intact, ROM Intact Neurological Exam: Normal Neurological: Positive: Alert, Muscle Tone Normal Psychological Exam: Normal Psychological: Positive: Normal Response To Family, Age Appropriate Behavior Skin Exam: Normal Naus/Vom/Diarrhea Course/Dx - Course Course Of Treatment: No abdominal pain or fever and clinic. Has not seen any blood in the diarrhea. The overall plan is to treat with Zofran when necessary. We discussed that if she gets abdominal pain or fevers the diarrhea gets worse or she has dehydration she should get reevaluated right away. - Differential Dx/Diagnosis Provider Diagnosis: Nausea, Diarrhea Condition At Discharge: Stable Discharge - Sign-Out/Discharge Documenting (check all that apply): Patient Departure All imaging exams completed and their final reports reviewed: No Studies - Discharge Plan Condition: Stable Disposition: HOME Prescriptions: Ondansetron ODT TAB* [Zofran 4 MG Odt TAB*] 4 mg PO Q6H PRN #10 tab.odt PRN Reason: Nausea Patient Education Materials: Acute Nausea and Vomiting (ED), Acute Diarrhea (ED ) Referrals: [facility] [place] [facility] [Outside] Additional Instructions: FOLLOW UP WITH YOUR DOCTOR IF NOT COMPLETELY IMPROVED. GET REEVALUATED SOONER IF YOUR CONDITION WORSENS OR ANY QUESTIONS OR CONCERNS. - Billing Disposition and Condition Condition: STABLE Disposition: Home
== END 2018-11-16 21:35 | disposition home or self-care (01) ==
LOC: UCEAST 20:43
DX: R11.0 Nausea (principal); R19.7 Diarrhea, unspecified; Z97.5 Presence of (intrauterine) contraceptive device; Z88.0 Allergy status to penicillin; F17.220 Nicotine dependence, chewing tobacco, uncomplicated
CPT/HCPCS: 99212; A9270-GY; G0463

== ENCOUNTER 2019-08-22 15:14 | Emergency (ER) | payer BC, MEDICAID ==
--- NOTE | 2019-08-22 15:50 | UC ---
Throat Pain/Nasal Rizwan HPI - HPI Summary HPI Summary: 29 yo female presents with sore throat. She tells me that yesterday she developed a sore throat that has continued into today. Has not taken anything OTC for her symptoms. She is eating, drinking, and tolerating po well. Denies fever, chills, cough, SOB, rash, n/v. - History of Current Complaint Stated Complaint: SORE THROAT,HEADACHE Time Seen by Provider: 08/22/19 15:50 Hx Obtained From: Patient Hx Last Menstrual Period: iud Onset/Duration: Sudden Onset Severity: Mild Pain Intensity: 2 Pain Scale Used: 0-10 Numeric - Allergies/Home Medications Allergies/Adverse Reactions: Allergies Allergy/AdvReac Type Severity Reaction Status Date / Time No Known Allergies Allergy Verified 08/22/19 15:49 PMH/Surg Hx/FS Hx/Imm Hx - Additional Past Medical History Additional PMH: None - Surgical History Surgical History: None - Family History Known Family History: Positive: None Negative: Blood Disorder - Social History Occupation: Employed Full-time Lives: With Family Alcohol Use: None Substance Use Type: None Smoking Status (MU): Never Smoked Tobacco Type: Smokeless Tobacco Amount Used/How Often: 1 can/day Have You Smoked in the Last Year: No - Immunization History Most Recent Influenza Vaccination: 05/09/17 Most Recent Tetanus Shot: 07/25/15 Most Recent Pneumonia Vaccination: none Review of Systems All Other Systems Reviewed And Are Negative: No Constitutional: Positive: Negative Skin: Positive: Negative Eyes: Positive: Negative ENT: Positive: Sore Throat Respiratory: Positive: Negative Cardiovascular: Positive: Negative Gastrointestinal: Positive: Negative Physical Exam - Summary Physical Exam Summary: GENERAL: NAD. WDWN. No pain distress. SKIN: No rashes, sores, lesions, or open wounds. HEENT: Head: AT/NC Eyes: EOM intact. Conjunctiva clear without inflammation or discharge. Ears: Hearing grossly normal. TMs intact, no bulging, erythema, or edema. Nose: Nasal mucosa pink and moist. NTTP maxillary and frontal sinus. Throat: Posterior oropharynx without exudates, erythema, or tonsillar enlargement. Uvula midline. Positive post nasal drip NECK: Supple. Nontender. No lymphadenopathy. CHEST: CTAB. No r/r/w. No accessory muscle use. Breathing comfortably and in no distress. CV: RRR. Pulses intact. Cap refill <2seconds NEURO: Alert. PSYCH: Age appropriate behavior. Triage Information Reviewed: Yes Vital Signs: Vital Signs: Temp Pulse Resp BP Pulse Ox 97.5 F 77 16 117/68 98 08/22/19 15:49 08/22/19 15:49 08/22/19 15:49 08/22/19 15:49 08/22/19 15:49 Laboratory Tests 08/22/19 08/22/19 16:01 16:02 Influenza A (Rapid) Negative Influenza B (Rapid) Negative Group A Strep Rapid Negative Vital Signs Reviewed: Yes Throat Pain/Nasal Course/Dx - Course Course Of Treatment: POC strep and flu negative. Suspect viral vs post nasal drip causing throat irritation -- will try claritin and mucinex - Differential Dx/Diagnosis Provider Diagnosis: Sore throat Discharge ED - Sign-Out/Discharge Documenting (check all that apply): Patient Departure All imaging exams completed and their final reports reviewed: No Studies - Discharge Plan Condition: Stable Disposition: HOME Prescriptions: guaiFENesin ER TAB [Mucinex*] 600 mg PO BID #14 tab.er Loratadine [Claritin] 10 mg PO DAILY #14 tab.rapdis Patient Education Materials: Pharyngitis (ED) Forms: *Work Release Referrals: No Primary Care Phys,NOPCP [Primary Care Provider] - Additional Instructions: If you develop a fever, shortness of breath, chest pain, new or worsening symptoms - please call your PCP or go to the ED immediately. - Billing Disposition and Condition Condition: STABLE Disposition: Home
[2019-08-22 15:54] VITALS: BP 117/68
[2019-08-22 16:15] LABS: Influenza A Molecular NEGATIVE (Negative); Influenza B Molecular NEGATIVE (Negative)
== END 2019-08-22 16:28 | disposition home or self-care (01) ==
LOC: UCEAST 15:14
DX: J02.9 Acute pharyngitis, unspecified (principal)
CPT/HCPCS: 87651; 99212; G0463

== ENCOUNTER 2019-09-08 09:26 | Emergency (ER) | payer BC, MEDICAID ==
[2019-09-08 09:54] LABS: Influenza A Molecular Negative (Negative); Influenza B Molecular Negative (Negative)
[2019-09-08] MEDS ORDERED: Ketorolac *IM* INJ* 60 MG/2 ML VIAL IM ONE (10:52)
[2019-09-08 11:28] VITALS: BP 124/78
--- NOTE | 2019-09-08 11:50 | ED ---
Influenza-Like Illness - HPI Summary HPI Summary: This patient is a 29-year-old female presenting to the ED with a 2 to three-day history of cough, congestion, headache, worst behind the eyes, body aches. Denies subjective fevers, however has been having sweats and chills intermittently. She states all 4 kids at home are sick with the flu at this time. She denies any throat pain. Denies any sinus tenderness. Denies any ear pain. - History of Current Complaint Chief Complaint: EDFluSymptoms Time Seen by Provider: 09/08/19 09:39 - Allergy/Home Medications Allergies/Adverse Reactions: Allergies Allergy/AdvReac Type Severity Reaction Status Date / Time No Known Allergies Allergy Verified 09/08/19 09:54 PMH/Surg Hx/FS Hx/Imm Hx Endocrine/Hematology History: Denies: Hx Diabetes, Hx Thyroid Disease Cardiovascular History: Denies: Hx Hypertension Respiratory History: Denies: Hx Asthma, Hx Chronic Obstructive Pulmonary Disease (COPD) GI History: Denies: Hx Ulcer Infectious Disease History: No Infectious Disease History: Denies: Hx Clostridium Difficile, Hx Hepatitis, Hx Human Immunodeficiency Virus (HIV), Hx of Known/Suspected MRSA, Hx Shingles, Hx Tuberculosis, Hx Known/ Suspected VRE, Hx Known/Suspected VRSA, History Other Infectious Disease, Traveled Outside the [place] in Last 30 Days - Family History Known Family History: Positive: None Negative: Blood Disorder - Social History Alcohol Use: None Hx Substance Use: No Substance Use Type: Reports: None Hx Tobacco Use: No Smoking Status (MU): Never Smoked Tobacco Type: Smokeless Tobacco Amount Used/How Often: 1 can/day Have You Smoked in the Last Year: No Physical Exam Vital Signs On Initial Exam: Initial Vitals Temp Pulse Resp BP Pulse Ox 98.6 F 84 18 127/90 99 09/08/19 09:29 09/08/19 09:29 09/08/19 09:29 09/08/19 09:29 09/08/19 09:29 Diagnostics - Vital Signs Vital Signs Temp Pulse Resp BP Pulse Ox 09/08/19 09:29 98.6 F 84 18 127/90 99 - Laboratory Lab Results: Lab Results 09/08/19 Range/Units 09:30 Influenza A (Rapid) Negative (Negative) Influenza B (Rapid) Negative (Negative) Lab Statement: Any lab studies that have been ordered have been reviewed, and results considered in the medical decision making process. Discharge ED - Discharge Plan Condition: Stable Disposition: HOME Prescriptions: guaiFENesin/CODIENE 100mg/10mg [Robitussin AC 100Mg-10Mg*] 10 ml PO BEDTIME # 120 udc MDD 40 Ketorolac TAB * [Toradol TAB *] 10 mg PO Q6H #16 tab Patient Education Materials: Viral Syndrome (ED) Forms: *Work Release Referrals: No Primary Care Phys,NOPCP [Primary Care Provider] - Additional Instructions: Humidifier in the home may help Out of work 2 days Drink plenty of fluids Rest Robitussin with codeine 10 mL up to 4 times daily for cough Toradol 10 mg 4 times daily Tylenol 650 mg 4 times daily Use these intermittently For worsening symptoms, please return to the ED - Billing Disposition and Condition Condition: STABLE Disposition: Home
== END 2019-09-08 11:05 | disposition home or self-care (01) ==
LOC: ED 09:26
DX: B34.9 Viral infection, unspecified (principal)
CPT/HCPCS: 96372; 99282; J1885